=== PATIENT | male | born 1995 | race Caucasian/White ===

== ENCOUNTER 2022-05-14 10:53 | Outpatient (REF) | payer OTHER, SELFPAY ==
[2022-05-14 14:28] LABS: Abs Immature Grans 0.02 10^3/uL (0.0-0.06); Absolute Basophil Count 0.05 10^3/uL (0.0-0.2); Absolute Eosinophil Count 0.09 10^3/uL (0.0-0.7); Absolute Lymphocyte Count 1.24 10^3/uL (1.2-3.4); Absolute Monocyte Count 0.37 10^3/uL (0.1-0.8); Basophils % 0.9; Eosinophils % 1.7; HCT 45.6 % (40.0-50.0); HGB 15.2 g/dL (13.5-17.5); Immature Grans % 0.4; Lymphocytes % 23.5; MCH 30.6 pg (27.0-33.0); MCHC 33.3 % (32.0-36.0); MCV 92 fL (80-95); MPV 11.3 fL (8.0-11.0); Neutrophils % 66.5; Platelet Count 220 10^3/uL (130-400); RBC 4.97 10^6/uL (4.36-5.78); RDW 13.1 % (11.8-14.1); RDW-SD 44.2 fL; WBC 5.27 10^3/uL (4.4-10.8)
[2022-05-14 14:32] LABS: ESR < 1 mm/hr (0-15)
[2022-05-14 14:46] LABS: ALT 17 U/L (16-63); AST 17 U/L (15-37); Albumin 4.6 g/dL (3.4-5.0); Alkaline Phosphatase 81 U/L (46-116); Anion Gap 7.3 mmol/L (3-11); BUN 12 mg/dL (7-18); Bilirubin, Total 0.6 mg/dL (0.2-1.0); CO2 30.7 mmol/L (21.0-32.0); Calcium 9.5 mg/dL (8.5-10.1); Chloride 104 mmol/L (98-107); Estimated GFR 105.79 (mL/min/1.73m2); Glucose 88 mg/dL (74-106); Potassium 4.5 mmol/L (3.5-5.1); Sodium 142 mmol/L (136-145); TSH (W/Ref FT4) 0.54 uIU/mL (0.36-3.74); Total Protein 7.3 g/dL (6.4-8.2)
[2022-05-15 12:26] LABS: IgA 141 mg/dL (85-499); Interpretation (See Note); Tissue Transglutaminase IgA <1.2 U/mL (<4.0)
== END 2022-05-14 10:54 | disposition home or self-care (01) ==
LOC: NCHCN 10:53
PROVIDERS: Visit Provider Family Medicine
DX: K58.2 Mixed irritable bowel syndrome (principal); F41.8 Other specified anxiety disorders
CPT/HCPCS: 80053; 82784; 83516; 85652; 84443; 85025

== ENCOUNTER 2022-05-22 08:57 | Outpatient (REF) | payer OTHER, SELFPAY | END 2022-05-22 08:58 | disposition home or self-care (01) | LOC: NCHCN 08:57 | PROVIDERS: Visit Provider Family Medicine | DX: F41.8 Other specified anxiety disorders (principal); K58.2 Mixed irritable bowel syndrome | CPT/HCPCS: 87329; 83630; 87177 ==

== ENCOUNTER 2024-01-06 14:59 | Outpatient (REF) | payer OTHER, SELFPAY ==
[2024-01-06 14:54] LABS: HCT 46.4 % (40.0-50.0); HGB 15.7 g/dL (13.5-17.5); MCH 30.4 pg (27.0-33.0); MCHC 33.8 % (32.0-36.0); MCV 90 fL (80-95); MPV 11.1 fL (8.0-11.0); Platelet Count 220 10^3/uL (130-400); RBC 5.17 10^6/uL (4.36-5.78); RDW 13.2 % (11.8-14.1); RDW-SD 43.6 fL; WBC 4.99 10^3/uL (4.4-10.8)
--- OUTSIDE RECORDS SUMMARY | 2024-01-06 15:03 | XMS_ITS | Referral Summary ---
Author Organization [facility] Address [address] [place] [address] Care Team Providers Care Outreach Associate Name Role Phone Sunita Cooper MD Primary Care Provider [phone] Allergies No known active allergies Medications No known medications Active Problems No known active problems Social History Tobacco Use Types Packs/Day Years Used Date Smoking Tobacco: Never Smokeless Tobacco: Never Alcohol Use Standard Drinks/Week Comments Yes 0 (1 standard drink = 0.6 oz pur e alcohol) Interpersonal Safety Answer Date Record ed Physically Hurt Never 12/18/2019 Verbally Threaten Not on file 12/18/2019 Sex and Gender Information Value Date Recorded Sex Assigned at Not on file Gender Identity Not on file Sexual Orientation Not on file Last Filed Vital Signs Vital Sign Reading Time Taken Comments Blood Pressure 110/46 07/14/2013 1026 EST Pulse 47 07/14/2013 1026 EST Temperature 37.1 ??C (98.7 ??F) 07/14/2013 1026 EST Respiratory Rate 16 07/14/2013 1026 EST Oxygen Saturation - - Inhaled Oxygen Concentration - - Weight - - Height - - Body Mass Index - - Functional Status Functional Status Response Date of Assess ment Because of a physical, menta l, or emotional condition, does this person have difficulty doing errands alone such as visiting a doctor's office or shopping? No 03/24/2018 Cognitive Status Response Date of Assessm ent Because of a physical, menta l, or emotional condition, does this person have serious difficulty concentrating, remembering, or making decisions? No 03/24/2018 Plan of Treatment Not on file Care Teams Outreach Associate Relationship Specialty Start Date End Date Sunita Cooper MD [address] [place] [address] PCP - General 07/14/13
--- OUTSIDE RECORDS SUMMARY | 2024-01-06 15:03 | XMS_ITS | Clinical Summary ---
Author Organization [facility] Address [address] [place] [address] Care Team Providers Care Payment Rep Name Role Phone Sunita Cooper MD Primary Care Provider [phone] Allergies No known active allergies Medications No known medications Active Problems No known active problems Medical History Medical History Date Comments Chronic low back pain Family History Medical History Relation Comments Psoriasis Father Relation Status Comments Father Alive Mother Alive Social History Tobacco Use Types Packs/Day Years [...] on file Sexual Orientation Not on file Obstetrics History Last Filed Vital Signs Vital Sign Reading Time Taken Comments Blood Pressure 110/46 07/14/2013 1026 EST Pulse 47 07/14/2013 1026 EST Temperature 37.1 ??C (98.7 ??F) 07/14/2013 1026 EST Respiratory Rate 16 07/14/2013 1026 EST Oxygen Saturation - - Inhaled Oxygen Concentration - - Weight - - Height - - Body Mass Index - - Plan of Treatment Health Maintenance Due Date Last Done Comments Hepatitis C Screen 1994 Hepatitis B Vaccine (1 of 3 - 19+ 3-dose series) 12/25 COVID-19 Vaccine ( season) 2023 Care Teams Payment Rep Relationship Specialty Start Date End Date Sunita Cooper MD [address] [place] [address] PCP - General 07/14/13
--- OUTSIDE RECORDS SUMMARY | 2024-01-06 15:03 | XMS_ITS | Encounter Summary ---
Author Organization [facility] Address [address] [place] [address] Care Team Providers Care Bariatric Surgeon Name Role Phone Sunita Cooper MD Primary Care Provider [phone] Reason for Referral * Radiology Services (Routine) - New Request Specialty Diagnoses / Procedures Referred By Sheila wick Referred To Contact Diagnoses Low back pain, unspecified back pain laterality, unspecified chronicity, with sciatica presence unspecified Procedures L SPINE 2-3 VIEWS Dandre Roe PA-C [address] [place] [address] Referral ID Status Reason Start Date Expiration Date V isits Requested Visits Authorized [id number] New Request 03/02/2018 1 1 Encounter Details Date Type Department Care Team (Late st Contact Info) Description 02/26/2018 Orders Only [facility] Spine Program - [address] [address] Dandre Roe PA-C [address] [place] [address] Low back pain, unspecified back pain laterality, unspecified chronicity, with sciatica presence unspecified (Primary Dx) Social History Tobacco Use Types Packs/Day Years Used Date Smoking Tobacco: Never Sex and Gender Information Value Date Recorded Sex Assigned at Not on file Gender Identity Not on file Sexual Orientation Not on file documented as of this encounter Plan of Treatment Not on file documented as of this encounter Procedures Procedure Name Priority Date/Time Associated Diagnosis Comments L SPINE 2-3 VIEWS Routine 03/24/2018 15: 02 EST Low back pain, unspecified back pain laterality, unspecified chronicity, with sciatica presence unspecified documented in this encounter Results * L SPINE 2-3 VIEWS (03/24/2018 15:02 EST) Anatomical Region Laterality Modality Other 03/24/2018 15:0 2 EST 03/25/2018 13:26 EST Narrative 03/25/2018 13:26 EST LUMBAR SPINE, 2 VIEWS HISTORY: Low back pain. Technique PA and lateral lumbar spine radiographs. COMPARISON: None. FINDINGS: The alignment is maintained. The vertebral body heights are normal. Minimal scattered degenerative changes are present. The included extraspinal soft tissues are unremarkable. IMPRESSION: Minimal degenerative changes. No significant malalignment. Procedure Note Mg Carter MD - 03/25/2018 LUMBAR SPINE, 2 VIEWS HISTORY: Low back pain. Technique PA and lateral lumbar spine radiographs. COMPARISON: None. FINDINGS: The alignment is maintained. The vertebral body heights are normal. Minimal scattered degenerative changes are present. The included extraspinal soft tissues are unremarkable. IMPRESSION: Minimal degenerative changes. No significant malalignment. Dandre Roe PA-C [facility] NG ORDERABLES documented in this encounter Visit Diagnoses Diagnosis Low back pain, unspecified back pain laterality, unspecified chronicity, with sciatica presence unspecified- Primary documented in this encounter Care Teams Bariatric Surgeon Relationship Specialty Start Date End Date Sunita Cooper MD [address] [place] [id number] PCP - General 07/14/13 documented as of this encounter
--- OUTSIDE RECORDS SUMMARY | 2024-01-06 15:03 | XMS_ITS | Encounter Summary ---
Author Organization [facility] Address [address] [place] [address] Care Team Providers Care Senior Ui Ux Designer Name Role Phone Sunita Cooper MD Primary Care Provider [phone] Encounter Details Date Type Department Care Team (Late st Contact Info) Description 12/09/2018 Results Only [facility] [phone] Aleshia Feliz, LOSS PREVENTION RESEARCH ENGINEER-C [address] [place] [phone] Social History Tobacco Use Types Packs/Day Years Used Date Smoking Tobacco: Never Smokeless Tobacco: Never Alcohol Use Standard Drinks/Week Comments Yes 0 (1 standard drink = 0.6 oz pur e alcohol) Sex and Gender Information Value Date Recorded Sex Assigned at Not on file Gender Identity Not on file Sexual Orientation Not on file documented as of this encounter Functional Status Functional Status Response Date of [...] concentrating, remembering, or making decisions? No 03/24/2018 documented as of this encounter Plan of Treatment Not on file documented as of this encounter Procedures Procedure Name Priority Date/Time Associated Diagnosis Comments CHLAMYDIA/N. GONORRHOEAE AMPLIFIED RNA, URINE Routine 12/09/2018 12:36 EDT documented in this encounter Results * CHLAMYDIA/N. GONORRHOEAE AMPLIFIED RNA, URINE (12/09/2018 12:36 EDT) Chlamydia Result Negative 12/10/2018 14:14 EDT [facility] GC Result Negative 12/10/2018 14:14 EDT [facility] URINE / Unknown 12/09/2018 1 2:36 EDT 12/09/2018 20:09 EDT Aleshia Feliz LOSS PREVENTION RESEARCH ENGINEER-C MICROBIOLOGY - GENER AL ORDERABLES [facility] [address] [place] [address] documented in this encounter Visit Diagnoses Not on filedocumented in this encounter Care Teams Senior Ui Ux Designer Relationship Specialty Start Date End Date Sunita Cooper MD [address] [place], [place] [phone] PCP - General 07/14/13 documented as of this encounter
--- OUTSIDE RECORDS SUMMARY | 2024-01-06 15:03 | XMS_ITS | Encounter Summary ---
Author Organization [facility] Address [address] [place] [address] Care Team Providers Care Concrete Buster Operator Name Role Phone Sunita Cooper MD Primary Care Provider [phone] Encounter Details Date Type Department Care Team (Late st Contact Info) Description 11/12/2015 Results Only [facility] [phone] Rachana Hamilton MD [address] [place] [phone] Social History Tobacco Use Types Packs/Day Years Used Date Smoking Tobacco: Never Sex and Gender Information Value Date Recorded Sex Assigned at Not on file Gender Identity Not on file Sexual Orientation Not on file documented as of this encounter Plan of Treatment Not on file documented as of this encounter Procedures Procedure Name Priority Date/Time Associated Diagnosis Comments GROUP A STREP CULTURE Routine 11/12/2015 17:07 EDT documented in this encounter Results * PHARYNGITIS CULTURE (11/12/2015 17:07 EDT) Result No group A beta streptococci isolated. Usual jamie-pharyngeal mini. 11/15/2015 8:31 EDT [facility] ENTIRE THROAT / Unknown 11/12/2015 17:07 EDT 11/12/2015 20:07 EDT Rachana Hamilton MD MICROBIOLOGY - GEN ERAL ORDERABLES [facility] [address] [place] [address] documented in this encounter Visit Diagnoses Not on filedocumented in this encounter Care Teams Concrete Buster Operator Relationship Specialty Start Date End Date Sunita Cooper MD [address] [place] [phone] PCP - General 07/14/13 documented as of this encounter
--- OUTSIDE RECORDS SUMMARY | 2024-01-06 15:03 | XMS_ITS | Encounter Summary ---
Author Organization [facility] Address [address] [place] [address] Care Team Providers Care Workers Compensation Claims Adjuster Name Role Phone Sunita Cooper MD Primary Care Provider [phone] Encounter Details Date Type Department Care Team (Latest Contact Info) Description 12/09/2018 17:44 EDT - 12/09/2018 17:45 EDT Hospital Encounter [address] [address] Aleshia Feliz, MEGAN-C [address] [place] [address] Discharge Disposition: Home or Self Care Social History Tobacco Use Types Packs/Day Years [...] No 03/24/2018 documented as of this encounter Discharge Diagnoses Diagnosis R39.89 Other symptoms and signs involving the genitourinary system-R39.89[ICD-10-CM] documented in this encounter Discharge Disposition Disposition Code Departure Means Destination Home or Self Care documented in this encounter Plan of Treatment Not on file documented as of this encounter Visit Diagnoses Not on filedocumented in this encounter Care Teams Workers Compensation Claims Adjuster Relationship Specialty Start Date End Date Sunita Cooper MD [address] [place] [address] PCP - General 07/14/13 documented as of this encounter
--- OUTSIDE RECORDS SUMMARY | 2024-01-06 15:03 | XMS_ITS | Encounter Summary ---
Author Organization [facility] Address [address] [place] [address] Care Team Providers Care Crossbow Maker Name Role Phone Unavailable Primary Care Provider Unavailabl e Encounter Details Date Type Department Care Team (Late st Contact Info) Description 03/30/2003 Results Only [facility] - [facility] [address] [place] [address] Kayy Sanchez MD [address] [place] [address], [facility] [address] [place] [address] Social History Tobacco Use Types Packs/Day Years Used Date Smoking Tobacco: Never Assessed Sex and Gender Information Value Date Recorded Sex Assigned at Not on file Gender Identity Not on file Sexual Orientation Not on file documented as of this encounter Plan of Treatment Not on file documented as of this encounter Procedures Procedure Name Priority Date/Time Associated Diagnosis Comments GROUP A STREP CULTURE Routine 03/30/2003 14:00 EST documented in this encounter Results * PHARYNGITIS CULTURE (03/30/2003 14:00 EST) Specimen Description Throat [facility] Result NO GROUP A BETA STREPTOCOCCI ISOLATED [facility] Report Status Final [id number] [facility] 03/30/2003 14:0 0 EST 03/30/2003 18:11 EST Kayy Sanchez MD MICROBIOLOGY - GENERAL ORDERABLES [facility] [address] [place] [address] documented in this encounter Visit Diagnoses Not on filedocumented in this encounter
--- OUTSIDE RECORDS SUMMARY | 2024-01-06 15:03 | XMS_ITS | Encounter Summary ---
Author Organization [facility] Address [address] [place] [address] Care Team Providers Care Advanced Manager Name Role Phone Sunita Cooper MD Primary Care Provider [phone] Reason for Visit * Reason Comments Rash Encounter Details Date Type Department Care Team (Latest Contact Info) Description 07/14/2013 9:57 EST - 07/14/2013 13:44 EST Hospital Encounter [facility] - [address] [id number] Felipe Orantes MD [address] [place] [address] Unknown, Provider, Rash (Primary Dx) Discharge Disposition: Home or Self Care Social History Tobacco Use Types Packs/Day Years Used Date Smoking Tobacco: Never Sex and Gender Information Value Date Recorded Sex Assigned at Not on file Gender Identity Not on file Sexual Orientation Not on file documented as of this encounter Last Filed Vital Signs Vital Sign Reading Time Taken Comments Blood Pressure 110/46 07/14/2013 1026 EST Pulse 47 07/14/2013 1026 EST Temperature 37.1 ??C (98.7 ??F) 07/14/2013 1026 EST Respiratory Rate 16 07/14/2013 1026 EST Oxygen Saturation - - Inhaled Oxygen Concentration - - Weight - - Height - - Body Mass Index - - documented in this encounter Discharge Diagnoses Diagnosis 782.1 NONSPECIF SKIN ERUPT NEC[ICD-9-CM] documented in this encounter Discharge Instructions * Discharge Instructions* Felipe Orantes MD - 07/14/2013 12:02 EST You may try clotrimazole 1% cream on the area per the package instructions. It is available [id number]. You should follow up with a provider if you find your symptoms do not improve. Otherwise follow up acutely if you have worsening or new symptoms. * Attachments The following attachments cannot be sent through Care Everywhere. * RASH: AFTER YOUR CHILD'S VISIT (NAMIBIAN) documented in this encounter Discharge Disposition Disposition Code Departure Means Destination Home or Self Care documented in this encounter ED Notes * Felipe Orantes MD - 07/14/2013 1108 EST Images from the original note were not included. DOS: 07/14/2013 Chief Complaint Patient presents with ??? Rash The patient is a 17 y.o. male who presents today with Rash HPI Comments: Patient presents today with his father for concern of a small rash on his lower back.There are several small red spots on his lower back. The areas are not itchy or painful. He cannot recall any specific exposure. They have not tried any treatments. The rash is not that bothersome, but as the patient is a highly ranked wrestler, who has a match tomorrow, they want to have paperworkcompleted to state that this is not a contagious rash. They bring specific paperwork sanctioned by the school and [employer]. He feels well The history is provided by the patient and a parent. Rash Location: lower back. Quality comment: Small red spots Severity: Mild Onset quality: Sudden Duration: 3 days. Timing: Constant Progression: Improving (Maybe slightly better) Chronicity: New Context: not animal contact, not chemical exposure, not exposure to similar rash, not food, not insect bite/sting, not medications, not plant contact and not sick contacts Relieved by: None tried Worsened by: Nothing tried Ineffective treatments: None tried Associated symptoms: no fatigue, no fever and no URI Review of Systems Constitutional: Negative for fever, chills, diaphoresis, activity change and fatigue. Skin: Positive for color change and rash. Negative for pallor and wound. No current facility-administered medications for this encounter. No current outpatient prescriptions on file. No Known Allergies There are no active problems to display for this patient. History reviewed. No pertinent past medical history. History Substance Use Topics ??? Smoking status: Never Smoker ??? Smokeless tobacco: Not on file ??? Alcohol Use: Not on file History reviewed. No pertinent family history. BP 110/46 Pulse 47 Temp(Src) 98.7 ??F (37.1 ??C) Resp 16 Physical Exam Nursing note and vitals reviewed. Constitutional: He appears well-developed and well-nourished. No distress. Here with father. No distress. HENT: Head: Normocephalic. Mouth/Throat: No oropharyngeal exudate. Patient has characteristic cauliflower ear formation on both upper ear helices. Eyes: Conjunctivae are normal. Right eye exhibits no discharge. Left eye exhibits no discharge. Pulmonary/Chest: Effort normal. No respiratory distress. Skin: Skin is warm, dry and intact. Rash noted. No bruising and no ecchymosis noted. Rash is maculopapular. Rash is not pustular and not vesicular. He is not diaphoretic. There is erythema. No cyanosis. No pallor. Psychiatric: He has a normal mood and affect. His behavior is normal. Judgment and thought content normal. Rash, low back PCP: Sunita Cooper MD No results found for this visit on 07/14/13. Radiology orders: None Procedures Assessment & Plan, Course: A medical screening exam was performed. Patient is an otherwise healthy 17-year-old male here with his father for concern of several small spots of rash of low back, concerning for very early tinea. Patient actually has a wrestling tournament tomorrow. They have paperwork to be completed. Unfortunately, cannot rule out tinea definitively and cannot fill out form that would definitively state that patient does not have a non-contagious etiology to his rash. Per the form (which has specifics about diagnoses and presumed aim to reduce spreading of contagious skin diseases among participants) , recommendation would be that patient sit out of wrestling until after 72 hours of treatment. Rash is not consistent with more complicated or serious etiology such as the chest the or bacterialcause. Did offer lab testing of skin scraping- which is declined today Paperwork not completed. He may trial clotrimazole for the rash. Follow up if failing. Questions and concerns were answered. Patient and father expressed understanding of plan. Disposition: Discharged The patient's pain was managed to an adequate level weighing risk vs. benefit of further medications. Upon departure from the [facility], the patient's pain was 0 on a zero to ten scale. Condition at departure from the [facility]: Stable Final diagnoses: Rash No supervision required. MDM Signed: Felipe Orantes MD 07/15/2013 11:51 * Gwen Zhong RN - 07/14/2013 1027 EST The rash started about 3 days ago on his back. He needs a note to compete in wrestling for [employer]. It is not itchy and there is no drainage. documented in this encounter Plan of Treatment Not on file documented as of this encounter Visit Diagnoses Diagnosis Rash- Primary Rash and other nonspecific skin eruption documented in this encounter Care Teams Advanced Manager Relationship Specialty Start Date End Date Sunita Cooper MD [address] [place] [address] PCP - General 07/14/13 documented as of this encounter
--- OUTSIDE RECORDS SUMMARY | 2024-01-06 15:03 | XMS_ITS | Encounter Summary ---
Author Organization [facility] Address [address] [place] [address] Care Team Providers Care Bottoming Machine Operator Name Role Phone Unknown, Provider Primary Care Provider [phone] Encounter Details Date Type Department Care Team (Late st Contact Info) Description 10/21/2012 Results Only [facility] Laboratory Services - [facility] ([facility] [address] [place] [address] Sunita Cooper MD [address] [place], [place] [phone] Social History Tobacco Use Types Packs/Day Years [...] Comments CHLAMYDIA/N. GONORRHOEAE AMPLIFIED RNA, URINE Routine 10/21/2012 13:48 EDT documented in this encounter Results * CHLAMYDIA/GC AMPLIFIED, URINE (10/21/2012 13:48 EDT) Specimen Description Urine [facility] Chlamydia Result No Chlamydia trachomatis DNA detected by boat crew deck hand mediated amplification. [facility] GC Result No Neisseria gonorrhoeae DNA detected by boat crew deck hand mediated amplification. [facility] 10/21/2012 13:4 8 EDT 10/21/2012 19:37 EDT Sunita Cooper MD MICROBIOLOGY - GENER AL ORDERABLES Performing Organization Address City/State/[facility] Co de Phone Number [address] [address] documented in this encounter Visit Diagnoses Not on filedocumented in this encounter Care Teams Bottoming Machine Operator Relationship Specialty Start Date End Date Unknown, Provider, PCP - General 10/10/11 07/13/13 documented as of this encounter
--- OUTSIDE RECORDS SUMMARY | 2024-01-06 15:03 | XMS_ITS | Encounter Summary ---
Author Organization [facility] Address [address] [place] [address] Care Team Providers Care Assistant Professor Of Religion Name Role Phone Sunita Cooper MD Primary Care Provider [phone] Reason for Referral * Radiology Services (Routine) - Closed Specialty Diagnoses / Procedures Referred By Sheila wick Referred To Contact Diagnoses Neck pain Procedures CERVICAL SPINE 2-3 VIEWS Dandre Roe PA-C [address] [place], [place] [address] [place] [address] Referral ID Status Reason Start Date Expiration Date Visits Re quested Visits Authorized [id number] Closed 04/06/2018 1 1 Encounter Details Date Type Department Care Team (Late st Contact Info) Description 04/06/2018 Orders Only [facility] Spine Program [place] [address] [place] [address] Dandre Roe PA-C [address] [place] [phone] Neck pain (Primary Dx) Social History Tobacco Use Types [...] Procedure Name Priority Date/Time Associated Diagnosis Comments CERVICAL SPINE 2-3 VIEWS Routine 04/06/2018 14:58 EST Neck pain documented in this encounter Results * CERVICAL SPINE 2-3 VIEWS (04/06/2018 14:58 EST) Anatomical Region Laterality Modality Other 04/06/2018 14:5 8 EST 04/07/2018 7:57 EST Narrative 04/07/2018 7:57 EST CERVICAL SPINE 2-3 VIEWS ??04/06/2018 2:58 PM Clinical History/Comments: M54.9-Wmfliqlevdg-ZWH-10; neck pain. Technique: 2 views of the cervical spine Comparison: None. Findings: Slight reversal of the normal cervical curvature. No significant spondylolisthesis. Vertebral body heights are normal. Disc heights are normal. No significant facet arthropathy identified. Prevertebral soft tissues are unremarkable. Procedure Note Alejandro Leo MD - 04/07/2018 CERVICAL SPINE 2-3 VIEWS 04/06/2018 2:58 PM Clinical History/Comments: M54.7-Mtepjkooiea-WFF-10; neck pain. Technique: 2 views of the cervical spine Comparison: None. Findings: Slight reversal of the normal cervical curvature. No significant spondylolisthesis. Vertebral body heights are normal. Disc heights are normal. No significant facet arthropathy identified. Prevertebral soft tissues are unremarkable. Dandre Roe PA-C [facility] NG ORDERABLES documented in this encounter Visit Diagnoses Diagnosis Neck pain- Primary Cervicalgia documented in this encounter Care Teams Assistant Professor Of Religion Relationship Specialty Start Date End Date Sunita Cooper MD [address] [place] [address] PCP - General 07/14/13 documented as of this encounter
--- OUTSIDE RECORDS SUMMARY | 2024-01-06 15:03 | XMS_ITS | Encounter Summary ---
Author Organization [facility] Address [address] [place] [address] Care Team Providers Care Varnish Inspector Name Role Phone Sunita Cooper MD Primary Care Provider [phone] Encounter Details Date Type Department Care Team (Late st Contact Info) Description 05/14/[address] [facility] Pathology & Laboratory Medicine - [facility] [address] [place] [address] Outr Resulting Lab, Provider Social History Tobacco Use Types Packs/Day Years [...] Procedure Name Priority Date/Time Associated Diagnosis Comments CELIAC DISEASE PANEL Routine 05/14/2022 10:33 EST documented in this encounter Results * CELIAC DISEASE PANEL (05/14/2022 10:33 EST) Tissue Transglutaminase Antibody IGA <1.2 <4.0 U/mL 05/15/2022 12:21 EST [facility] Comment: A negative result may be due to IgA deficiency and does not rule out celiac disease. ? Negative: ??<4.0 U/mL ? Weak Positive: ??4.0 - 10.0 U/mL ? Positive: ??>10.0 U/mL Results were obtained with the [employer] Expert[employer] Lite R h-tTG IgA ROB assay on the [employer] DSX. IgA 141 85 - 499 mg/dL 05/15/2022 12:21 EST [facility] Celiac Disease Interpretation Negative Serology. Celiac disease unlikely. Approximately 10% of patients with celiac disease are seronegative. Patients who are already adhering to a gluten-free diet may also be seronegative. If celiac disease is highly clinically suspected, referral to gastroenterology for additional evaluation is recommended. 05/15/2022 12:21 EST [facility] Blood VENOUS BLOOD / Unknown 05/14/2022 10:33 EST 05/14/2022 21:40 EST Provider Outr Resulting Lab IMMUNOLOGY A ND SEROLOGY ORDERABLES Performing Organization Address City/State/[facility] Co de Phone Number [facility] [address] [place] [address] documented in this encounter Visit Diagnoses Not on filedocumented in this encounter Care Teams Varnish Inspector Relationship Specialty Start Date End Date Sunita Cooper MD [address] [place] [address] PCP - General 07/14/13 documented as of this encounter
--- OUTSIDE RECORDS SUMMARY | 2024-01-06 15:03 | XMS_ITS | Encounter Summary ---
Author Organization [facility] Address [address] [place] [address] Care Team Providers Care Moss Picker Name Role Phone Unavailable Primary Care Provider Unavailabl e Encounter Details Date Type Department Care Team (Late st Contact Info) Description 09/04/2003 14:25 EDT Hospital Encounter [facility] - Other [address] [place] [address] Adryan Dodson MD Social History Tobacco Use Types Packs/Day Years [...]
--- OUTSIDE RECORDS SUMMARY | 2024-01-06 15:03 | XMS_ITS | Encounter Summary ---
Author Organization [facility] Address [address] [place] [address] Care Team Providers Care Residence Life Coordinator Name Role Phone Unknown, Provider Primary Care Provider Encounter Details Date Type Department Care Team (Latest Contact Info) Description 10/21/2012 13:08 EDT - 10/21/2012 13:09 EDT Hospital Encounter [address] [address] Sunita Cooper MD [address] [place] [address] Discharge Disposition: Home or Self Care Social History Tobacco Use Types Packs/Day Years Used Date Smoking Tobacco: Never Assessed Sex and Gender Information Value Date Recorded Sex Assigned at Not on file Gender Identity Not on file Sexual Orientation Not on file documented as of this encounter Discharge Disposition Disposition Code Departure Means Destination Home or Self Care documented in this encounter Plan of Treatment Not on file documented as of this encounter Visit Diagnoses Not on filedocumented in this encounter Care Teams Residence Life Coordinator Relationship Specialty Start Date End Date Unknown, Provider, PCP - General 10/10/11 07/13/13 documented as of this encounter
--- OUTSIDE RECORDS SUMMARY | 2024-01-06 15:03 | XMS_ITS | Encounter Summary ---
Author Organization [facility] Address [address] [place] [address] Care Team Providers Care Automotive Machinist Apprentice Name Role Phone Sunita Cooper MD Primary Care Provider [phone] Encounter Details Date Type Department Care Team (Late st Contact Info) Description 11/12/2015 11:36 EDT - 11/12/2015 11:[address] [facility] - [address] [address] Rachana Hamilton MD [address] [place] [address] Discharge Disposition: Home or Self Care Social History Tobacco Use Types Packs/Day Years Used Date Smoking Tobacco: Never Sex and Gender Information Value Date Recorded Sex Assigned at Not on file Gender Identity Not on file Sexual Orientation Not on file documented as of this encounter Discharge Diagnoses Diagnosis J02.9 Acute pharyngitis, unspecified-J02.9[ICD-10-CM] documented in this encounter Discharge Disposition Disposition Code Departure Means Destination Home or Self Care documented in this encounter Plan of Treatment Not on file documented as of this encounter Visit Diagnoses Not on filedocumented in this encounter Care Teams Automotive Machinist Apprentice Relationship Specialty Start Date End Date Sunita Cooper MD [address] [place], [place] [id number] PCP - General 07/14/13 documented as of this encounter
--- OUTSIDE RECORDS SUMMARY | 2024-01-06 15:03 | XMS_ITS | Encounter Summary ---
Author Organization [facility] Address [address] [place] [address] Care Team Providers Care Progressive Care Unit Registered Nurse Name Role Phone Unknown, Provider Primary Care Provider [phone] Encounter Details Date Type Department Care Team (Late st Contact Info) Description 10/10/2011 Results Only [facility] - [facility] [address] [place] [address] Madonna Salmon MD [address] [place] [phone] Social History Tobacco Use Types Packs/Day Years Used Date Smoking Tobacco: Never Assessed Sex and Gender Information Value Date Recorded Sex Assigned at Not on file Gender Identity Not on file Sexual Orientation Not on file documented as of this encounter Plan of Treatment Not on file documented as of this encounter Procedures Procedure Name Priority Date/Time Associated Diagnosis Comments BACTERIAL CULTURE/SMEAR Routine 10/10/2011 17:30 EDT documented in this encounter Results * BACTERIAL CULTURE/SMEAR, OTHER (10/10/2011 17:30 EDT) Specimen Description Arm [facility] Gram Smear Result No polys seen [facility] Gram Smear Result No bacteria seen [facility] Gram Smear Result Results reviewed by supervisory staff [facility] Result Mod STAPHYLOCOCCUS COAGULASE POSITIVE (STAPHYLOCOCCUS AUREUS) [facility] Report Status 10/13/2011 Final [facility] ORGANISM STAPHYLOCOCCUS COAGULASE POSITIVE (STAPHYLOCOCCUS AUREUS) [facility] Arm 10/10/2011 17:3 0 EDT 10/11/2011 14:13 EDT Narrative Organism Antibiotic Method Susceptibility Staphylococcus coagulase positive (staphylococcus aureus) Susceptibility comment SUSCEPTIBILITY (LARISA) SEE NOTES Comment: Susceptible to nafcillin, cephalosporins and other beta lactam antibiotics (mecA gene product absent). Staphylococcus coagulase positive (staphylococcus aureus) Oxacillin SUSCEPTIBILITY (LARISA) 0.5: Susceptible Staphylococcus coagulase positive (staphylococcus aureus) Cefazolin SUSCEPTIBILITY (LARISA) Susceptible Staphylococcus coagulase positive (staphylococcus aureus) Vancomycin SUSCEPTIBILITY (LARISA) 1: Susceptible Staphylococcus coagulase positive (staphylococcus aureus) Erythromycin SUSCEPTIBILITY (LARISA) >=8: Resistant Staphylococcus coagulase positive (staphylococcus aureus) Clindamycin SUSCEPTIBILITY (LARISA) 1024: Resistant Staphylococcus coagulase positive (staphylococcus aureus) Ciprofloxacin SUSCEPTIBILITY (LARISA) <=0.5: Susceptible Staphylococcus coagulase positive (staphylococcus aureus) Trimethoprim-Sulfamet hoxazole SUSCEPTIBILITY (LARISA) <=10: Susceptible Comment:Mod STAPHYLOCOCCUS C OAGULASE POSITIVE (STAPHYLOCOCCUS AUREUS) Madonna Salmon MD MICROBIOLOGY - GENERAL ORDERABLES [facility] [address] [place] [address] documented in this encounter Visit Diagnoses Not on filedocumented in this encounter Care Teams Progressive Care Unit Registered Nurse Relationship Specialty Start Date End Date Unknown, Provider, PCP - General 10/10/11 07/13/13 documented as of this encounter
--- OUTSIDE RECORDS SUMMARY | 2024-01-06 15:03 | XMS_ITS | Encounter Summary ---
Author Organization [facility] Address [address] [place] [address] Care Team Providers Care Tumbler Dyeing Machine Operator Name Role Phone Unavailable Primary Care Provider Unavailabl e Encounter Details Date Type Department Care Team (Late st Contact Info) Description 09/04/2003 Results Only [facility] - [facility] [address] [place] [address] Adryan Dodson MD Social History Tobacco Use [...] Diagnosis Comments GROUP A STREP CULTURE Routine 09/04/2003 18:40 EDT documented in this encounter Results * PHARYNGITIS CULTURE (09/04/2003 18:40 EDT) Specimen Description Throat [facility] Result NO GROUP A BETA STREPTOCOCCI ISOLATED [facility] Report Status Final [id number] [facility] 09/04/2003 18:4 0 EDT 09/04/2003 18:40 EDT Adryan Dodson MD MICROBIOLOGY - GENER AL ORDERABLES [facility] [address] [place] [address] documented in this encounter Visit Diagnoses Not on filedocumented in this encounter
--- OUTSIDE RECORDS SUMMARY | 2024-01-06 15:03 | XMS_ITS | Encounter Summary ---
Author Organization [facility] Address [address] [place] [address] Care Team Providers Care Pondman Name Role Phone Unavailable Primary Care Provider Unavailabl e Encounter Details Date Type Department Care Team (Latest Contact Info) Description 11/25/2005 16:06 EDT Hospital Encounter [facility] [address] [place] [address] Adryan Dodson MD Discharge Disposition: Auto Discharge Social History Tobacco Use Types Packs/Day Years Used Date Smoking Tobacco: Never Assessed Sex and Gender Information Value Date Recorded Sex Assigned at Not on file Gender Identity Not on file Sexual Orientation Not on file documented as of this encounter Discharge Disposition Disposition Code Departure Means Destination Auto Discharge documented in this encounter Plan of Treatment Not on file documented as of this encounter Procedures Procedure Name Priority Date/Time Associated Diagnosis Comments CHEST PA AND LATERAL 11/25/2005 16:20 EDT documented in this encounter Results * CHEST PA AND LATERAL (11/25/2005 16:20 EDT) Anatomical Region Laterality Modality Other 11/25/2005 16:2 0 EDT Narrative 12/02/2008 14:02 EDT swallowed quarter,chest pain anterior r/o foreigh body entrap wet rd [phone] CHEST PA AND LATERAL CLINICAL HISTORY: Swallowed a quarter, now pain in the anterior chest. Rule out foreign body entrapment. COMPARISON: No comparisons. FINDINGS: PA and lateral views of the chest show a quarter within the abdomen. Cardiomediastinal silhouette and pulmonary markings are unremarkable. Bones and soft tissues normal for age. Findings were called to the pediatric clinic. D: ??11/25/05 T: ??11/29/05 silvino I have personally reviewed the images and the above interpretation and agree with the findings. Procedure Note Mal Butler DDS / Adryan Vicente MD - 12/02/2008 swallowed quarter,chest pain anterior r/o foreigh body entrap wet rd [phone] CHEST PA AND LATERAL CLINICAL HISTORY: Swallowed a quarter, now pain in the anterior chest. Rule out foreign body entrapment. COMPARISON: No comparisons. FINDINGS: PA and lateral views of the chest show a quarter within the abdomen. Cardiomediastinal silhouette and pulmonary markings are unremarkable. Bones and soft tissues normal for age. Findings were called to the pediatric clinic. silvino I have personally reviewed the images and the above interpretation and agree with the findings. Adryan Dodson MD IMG DIAGNOSTIC IMAGI NG ORDERABLES documented in this encounter Visit Diagnoses Not on filedocumented in this encounter
--- OUTSIDE RECORDS SUMMARY | 2024-01-06 15:03 | XMS_ITS | Encounter Summary ---
Author Organization [facility] Address [address] [place] [address] Care Team Providers Care Welfare Service Aide Name Role Phone Unknown, Provider Primary Care Provider [phone] Encounter Details Date Type Department Care Team (Latest Contact Info) Description 10/10/2011 15:03 EDT - 10/10/2011 15:04 EDT Hospital Encounter [address] [address] Madonna Salmon MD [address] [place] [phone] Discharge Disposition: Home or Self Care [...] on filedocumented in this encounter Care Teams Welfare Service Aide Relationship Specialty Start Date End Date Unknown, Provider, PCP - General 10/10/11 07/13/13 documented as of this encounter
--- OUTSIDE RECORDS SUMMARY | 2024-01-06 15:03 | XMS_ITS | Encounter Summary ---
Author Organization [facility] Address [address] [place] [address] Care Team Providers Care Professor Of Poultry Science Name Role Phone Sunita Cooper MD Primary Care Provider [phone] Reason for Visit * Reason Comments Back Pain lbp Encounter Details Date Type Department Care Team (Late st Contact Info) Description 03/24/2018 14:45 EST Office Visit [facility] Spine Program - [address] [place] [address] Dandre Roe PA-C [address] [place] [address] [place] [address] Chronic bilateral low back pain without sciatica (Primary Dx) Discharge Disposition: Auto Discharge Social History Tobacco [...] as of this encounter Discharge Diagnoses Diagnosis M54.5 Low back pain-M54.5[ICD-10-CM] documented in this encounter Discharge Disposition Disposition Code Departure Means Destination Auto Discharge documented in this encounter Progress Notes * Dandre Roe PA - 03/24/2018 1445 EST Юлия Brown is being seen as a consultation from Dr. Pittman. Chief Complaint Patient presents with ??? Back Pain lbp There were no encounter diagnoses. HPI The patient presents with years of low back pain dating back to his high school years. Symptomshave been constant to some degree. Gradually increasing without radiation. Symptoms described as achiness and stiffness, it can be exacerbated by exercise before and after, as well as driving, lifting, sitting and transitioning while he finds some relief with heat and wearing a brace. He denies lower extremity symptoms and would like to discuss options in treatment of his discomfort. He has not seen a physical therapist, received long term care pharmacist or injection therapy. HPI There is no problem list on file for this patient. Past Medical History: Diagnosis Date ??? Chronic low back pain History reviewed. No pertinent surgical history. Social History Substance Use Topics ??? Smoking status: Never Smoker ??? Smokeless tobacco: Never Used ??? Alcohol use Yes Family History Problem Relation Age of Onset ??? Psoriasis Father No current outpatient prescriptions on file. No current facility-administered medications for this visit. No Known Allergies Review of Systems Constitutional: Positive for activity change. Eyes: Negative for visual disturbance. Respiratory: Negative for wheezing. Cardiovascular: Negative for palpitations. Gastrointestinal: Negative for constipation. Genitourinary: Negative for difficulty urinating. Musculoskeletal: Positive for back pain and neck pain. Skin: Negative for rash. Neurological: Negative for weakness and numbness. Psychiatric/Behavioral: The patient is not nervous/anxious. Physical Exam Constitutional: He is oriented to person, place, and time. He appears well- developed and well-nourished. No distress. Eyes: EOM are normal. Cardiovascular: Normal rate. Pulmonary/Chest: Effort normal. Neurological: He is alert and oriented to person, place, and time. Skin: Skin is warm and dry. Psychiatric: He has a normal mood and affect. Back Exam Comments: Gait is normal heel toe walking is normal No lesions rashes or hair akshat mild right paraspinal palp tenderness FROM Strength 5/5 soft touch diminished medial lateral left thigh Reflexes 1 DP2 babinski is down there is no clonus SLR right: neg Left: neg Hips have FROM FABERS neg Neurologic Exam Mental Status Oriented to person, place, and time. Cranial Nerves CN III, IV, Extraocular motions are normal. The prior workup of the patient includes: All films are normal. Assessment Musculoskeletal discogenic back pain, no signs of radiculopathy. PLAN: 1. Activity as tolerated. 2. Ibuprofen p.r.n. 3. Pain management per primary doctor. Dr Locke was available for consultation, but was not consulted. No orders of the defined types were placed in this encounter. Plan: documented in this encounter Plan of Treatment Not on file documented as of this encounter Visit Diagnoses Diagnosis Chronic bilateral low back pain without sciatica- Primary documented in this encounter Care Teams Professor Of Poultry Science Relationship Specialty Start Date End Date Sunita Cooper MD [address] [place] [address] PCP - General 07/14/13 documented as of this encounter
--- OUTSIDE RECORDS SUMMARY | 2024-01-06 15:03 | XMS_ITS | Encounter Summary ---
Author Organization [facility] Address [address] [place] [address] Care Team Providers Care Chemistry Quality Control Analyst Name Role Phone Sunita Cooper MD Primary Care Provider [phone] Encounter Details Date Type Department Care Team (Late st Contact Info) Description 12/15/2016 19:36 EDT - 12/15/2016 23:59 EDT Hospital Encounter [address] [address] Rachana Hamilton MD [address] [place] [address] Discharge Disposition: Auto Discharge Social History Tobacco Use Types Packs/Day Years Used Date Smoking Tobacco: Never Sex and Gender Information Value Date Recorded Sex Assigned at Not on file Gender Identity Not on file Sexual Orientation Not on file documented as of this encounter Discharge Diagnoses Diagnosis Z11.8 Encounter for screening for other infectious and parasitic diseases-Z11.8[ICD-10-CM] documented in this encounter Discharge Disposition Disposition Code Departure Means Destination Auto Discharge Home documented in this encounter Plan of Treatment Not on file documented as of this encounter Visit Diagnoses Not on filedocumented in this encounter Care Teams Chemistry Quality Control Analyst Relationship Specialty Start Date End Date Sunita Cooper MD [address] [place], [place] [id number] PCP - General 07/14/13 documented as of this encounter
--- OUTSIDE RECORDS SUMMARY | 2024-01-06 15:03 | XMS_ITS | Encounter Summary ---
Author Organization [facility] Address [address] [place] [address] Care Team Providers Care Cut Off Saw Grader Name Role Phone Unavailable Primary Care Provider Unavailabl e Encounter Details Date Type Department Care Team (Latest Contact Info) Description 03/30/2003 21:58 EST Hospital Encounter [facility] - Other [address] [place] [address] Kayy Sanchez MD [address] [place] [address] [address] [place] [address] Discharge Disposition: Auto Discharge Social History Tobacco [...]
--- OUTSIDE RECORDS SUMMARY | 2024-01-06 15:03 | XMS_ITS | Encounter Summary ---
Author Organization [facility] Address [address] [place] [address] Care Team Providers Care Resident Care Supervisor Name Role Phone Sunita Cooper MD Primary Care Provider [phone] Reason for Visit * Reason Onset Date Comments Medications Refill 08/09/2013 Encounter Details Date Type Department Care Team (Late st Contact Info) Description 08/09/2013 Telephone [facility] - [address] [address] Md Americo Provider, AIR CONTROL ELECTRONICS OPERATOR Medications Refill Social History Tobacco Use Types Packs/Day Years Used Date Smoking Tobacco: Never Sex and Gender Information Value Date Recorded Sex Assigned at Not on file Gender Identity Not on file Sexual Orientation Not on file documented as of this encounter Miscellaneous Notes * Telephone Encounter - Joan Martin RN - 08/09/2013 1314 EDT Patient made aware medication is otc, will go draft roller picker and use 2 times/day for 2 weeks. * Telephone Encounter - Destini Friedman RN - 08/09/2013 1218 EDT Call returned to father (Kwame). Voice mail identifies parent by name. Message left for Юлия to call us back for further questions as patient is 17 years old. Case discussed with Dr. Reyna. Pt didnot have a prescription but can purchase the Clotrimazole 1% OTC. Should be encouraged to use the cream twice a day for 14 days and recheck PRN. * Telephone Encounter - Daija Thakur - 08/09/2013 1200 EDT Misplaced meds, out of town, looking to see possibility of it being prescribed. Pt is currently outof state. documented in this encounter Plan of Treatment Not on file documented as of this encounter Visit Diagnoses Not on filedocumented in this encounter Care Teams Resident Care Supervisor Relationship Specialty Start Date End Date Sunita Cooper MD [address] [place] [address] PCP - General 07/14/13 documented as of this encounter
--- OUTSIDE RECORDS SUMMARY | 2024-01-06 15:03 | XMS_ITS | Encounter Summary ---
Author Organization [facility] Address [address] [place] [address] Care Team Providers Care Lace Inspector Name Role Phone Sunita Cooper MD Primary Care Provider [phone] Encounter Details Date Type Department Care Team (Late st Contact Info) Description 03/09/2018 Historical Results Only [facility] - [address] [address] [place] [address] [place] [address] Social History Tobacco Use Types Packs/Day Years Used Date Smoking Tobacco: Never Sex and Gender Information Value Date Recorded Sex Assigned at Not on file Gender Identity Not on file Sexual Orientation Not on file documented as of this encounter Plan of Treatment Not on file documented as of this encounter Procedures Procedure Name Priority Date/Time Associated Diagnosis Comments PHARYNGITIS SCREEN - [facility] Routine 03/09/2018 17:07 EDT documented in this encounter Results * PHARYNGITIS SCREEN - [facility] (03/09/2018 17:07 EDT) BETA HEMOLYTIC STREP NOT GRP A - CV ASSOCIATE MEDIA PLANNER 03/12/2018 12:35 EDT [facility] - [facility] FEW 03/12/2018 12:35 EDT [facility] USUAL ORAL/PHARYNGEA L MAKEDA - CV UTF 03/12/2018 12:35 EDT [facility] - [facility] PRESENT 03/12/2018 12:35 EDT [facility] 03/09/2018 17:0 7 EDT 03/10/2018 14:30 EDT Cachorro Yuan MD CHEMISTRY & BLOOD GAS ORDERABLES [facility] documented in this encounter Visit Diagnoses Not on filedocumented in this encounter Care Teams Lace Inspector Relationship Specialty Start Date End Date Sunita Cooper MD [address] [place] [address] PCP - General 07/14/13 documented as of this encounter
--- OUTSIDE RECORDS SUMMARY | 2024-01-06 15:03 | XMS_ITS | Encounter Summary ---
Author Organization [facility] Address [address] [place] [address] Care Team Providers Care Cement Contractor Name Role Phone Sunita Cooper MD Primary Care Provider [phone] Reason for Visit * Reason Comments Neck Pain * Consult, Test and Treat (Routine) - Closed Specialty Diagnoses / Procedures Referred By Sheila wick Referred To Contact Orthopedic Surgery Diagnoses Neck pain Debby Guadarrama MD [address] [place] [phone] [facility] [address] [place] [address] Referral ID Status Reason Start Date Expiration Date Visits Re quested Visits Authorized [id number] Closed 1 1 Encounter Details Date Type Department Care Team (Late st Contact Info) Description 04/06/2018 14:45 EST Office Visit [facility] - [place] [address] Dandre Roe PA-C [address] [facility] [place] [address] Neck pain (Primary Dx); Bilateral carpal tunnel syndrome Discharge Disposition: Auto Discharge Social History Tobacco [...] as of this encounter Discharge Diagnoses Diagnosis M54.2 Cervicalgia-M54.2[ICD-10-CM] documented in this encounter Discharge Disposition Disposition Code Departure Means Destination Auto Discharge documented in this encounter Progress Notes * Dandre Roe PA - 04/06/2018 1445 EST Юлия Kevin is being seen as a consultation from Dr. Guadarrama. Chief Complaint Patient presents with ??? Neck Pain There were no encounter diagnoses. HPI The patient presents with years of neck pain he attributes to wrestling most of his life. He notes that in 2013 and 2014, he had an episode of cervical spasm/torticollis and since that time his pain has been worse. He notes he also has associated upper extremity dysesthesias in the forearms in his hands including all fingers in particular his middle finger bilaterally, left slightly greater than right. He will also have occasional right shoulder pain. He has not seen a physical therapist, received palliative care coordinator or injection therapy. His symptoms can be exacerbated by tilting his head forward or back lifting, while he finds sitting in a neutral position somewhat helpful. HPI There is no problem list on file for this patient. Past Medical History: Diagnosis Date ??? Chronic low back pain No past surgical history on file. Social History Tobacco Use ??? Smoking status: Never Smoker ??? Smokeless tobacco: Never Used Substance Use Topics ??? Alcohol use: Yes Family History Problem Relation Age of Onset ??? Psoriasis Father No current outpatient medications on file. No current facility-administered medications for this visit. No Known Allergies Review of Systems Constitutional: Positive for activity change. Eyes: Negative for visual disturbance. Respiratory: Negative for wheezing. Cardiovascular: Negative for palpitations. Gastrointestinal: Negative for constipation. Genitourinary: Negative for difficulty urinating. Musculoskeletal: Positive for back pain, neck pain and neck stiffness. Skin: Negative for rash. Neurological: Positive for numbness. Negative for weakness. Psychiatric/Behavioral: The patient is nervous/anxious. Physical Exam Constitutional: He is oriented to person, place, and time. He appears well- developed and well-nourished. No distress. Eyes: EOM are normal. Cardiovascular: Normal rate. Pulmonary/Chest: Effort normal. Neurological: He is alert and oriented to person, place, and time. Skin: Skin is warm and dry. Psychiatric: He has a normal mood and affect. Back Exam Comments: No lesions rashes or hair akshat, no Palp tenderness FROM spurlings maneuver is negative bilaterally upper ext strength 5/5 soft touch diminished entire left arm reflexes 1 radial pulse 2 sales's sign neg tinel sign + bilateral wrist left greater than right Lhermittes sign neg Neurologic Exam Mental Status Oriented to person, place, and time. Cranial Nerves CN III, IV, Extraocular motions are normal. The prior workup of the patient includes: Cervical films revealed very mild disk degeneration at C3-4. This is minimal. Question of mild uncovertebral spurring on the left at this level as well. Otherwise mild loss of cervical lordosis. Disk space height is otherwise well preserved. No significant degenerative changes, otherwise no fractures. Assessment Back pain, multifactorial. I think the majority of his symptoms are related to whiplash-like syndrome given his long history of wrestling and episodes of increased neck pain based on his wrestling moves. Physical exam reveals no signs of radiculopathy, but does have signs of bilateral carpal tunnelsyndrome, left greater than right. We discussed options including expectant management as well as an anesthesia pain service consult to discuss injections in treatment of his discomfort. At this point he is not sure he wants to do that. I noted that if his hand numbness becomes more persistent, I would suggest following up with the upper extremity service and gain their insight as to what would be the best treatment options. PT versus injections versus surgery. Otherwise, activity as tolerated.Follow up p.r.n. Dr Miranda was available for consultation but was not consulted. No orders of the defined types were placed in this encounter. Plan: documented in this encounter Plan of Treatment Not on file documented as of this encounter Visit Diagnoses Diagnosis Neck pain- Primary Cervicalgia Bilateral carpal tunnel syndrome Carpal tunnel syndrome documented in this encounter Care Teams Cement Contractor Relationship Specialty Start Date End Date Sunita Cooper MD [address] [place] [address] PCP - General 07/14/13 documented as of this encounter
--- OUTSIDE RECORDS SUMMARY | 2024-01-06 15:03 | XMS_ITS | Encounter Summary ---
Author Organization [facility] Address [address] [place] [address] Care Team Providers Care Prevocational/Rehabilitation Counselor Name Role Phone Sunita Cooper MD Primary Care Provider [phone] Reason for Visit * Reason Onset Date Comments Referral Request 05/09/2020 Encounter Details Date Type Department Care Team (Late st Contact Info) Description 05/09/2020 Telephone [facility] Neurology - [address] [address] Unknown, Provider, Referral Request Social History Tobacco Use Types Packs/Day Years [...] No 03/24/2018 documented as of this encounter Miscellaneous Notes * Telephone Encounter - Michelle Salvador - 05/09/2020 1320 EST PCP called to schedule pt, referral in triage documented in this encounter Plan of Treatment Not on file documented as of this encounter Visit Diagnoses Not on filedocumented in this encounter Care Teams Prevocational/Rehabilitation Counselor Relationship Specialty Start Date End Date Sunita Cooper MD [address] [place] [address] PCP - General 07/14/13 documented as of this encounter
--- OUTSIDE RECORDS SUMMARY | 2024-01-06 15:03 | XMS_ITS | Encounter Summary ---
Author Organization [facility] Address [address] [place] [address] Care Team Providers Care Towerman Name Role Phone Sunita Cooper MD Primary Care Provider [phone] Encounter Details Date Type Department Care Team (Late st Contact Info) Description 12/15/2016 Results Only [facility] [phone] Rachana Hamilton MD [address] [place] [phone] Social History Tobacco Use Types Packs/Day [...] Comments CHLAMYDIA/N. GONORRHOEAE AMPLIFIED RNA, URINE Routine 12/15/2016 15:01 EDT documented in this encounter Results * CHLAMYDIA/N. GONORRHOEAE AMPLIFIED RNA, URINE (12/15/2016 15:01 EDT) Chlamydia Result Negative 12/16/2016 12:37 EDT [facility] GC Result Negative 12/16/2016 12:37 EDT [facility] URINE / Unknown 12/15/2016 1 5:01 EDT 12/15/2016 20:12 EDT Rachana Hamilton MD MICROBIOLOGY - GEN ERAL ORDERABLES [facility] [address] [place] [address] documented in this encounter Visit Diagnoses Not on filedocumented in this encounter Care Teams Towerman Relationship Specialty Start Date End Date Sunita Cooper MD [address] [place], [place] [id number] PCP - General 07/14/13 documented as of this encounter
[2024-01-06 15:46] LABS: Anion Gap 9.2 mmol/L (3-11); BUN 9 mg/dL (7-18); CO2 28.8 mmol/L (21.0-32.0); Calcium 9.7 mg/dL (8.5-10.1); Chloride 105 mmol/L (98-107); Estimated GFR 104.48 (mL/min/1.73m2); Glucose 95 mg/dL (74-106); Potassium 4.3 mmol/L (3.5-5.1); Sodium 143 mmol/L (136-145); TSH (W/Ref FT4) 0.63 uIU/mL (0.36-3.74)
== END 2024-01-06 15:00 | disposition home or self-care (01) ==
LOC: NCHCN 14:59
PROVIDERS: Visit Provider Family Medicine
DX: K58.9 Irritable bowel syndrome, unspecified (principal); F41.9 Anxiety disorder, unspecified
CPT/HCPCS: 80048; 85027; 84443

== ENCOUNTER 2024-03-25 18:43 | Emergency (ER) | payer OTHER, SELFPAY ==
[2024-03-25] VITALS (13 sets, daily range): BP systolic 116–135; BP diastolic 68–74; PULSE 67–95; RESP 16–18; TEMP 35.9; O2SAT 96–100
--- NOTE | 2024-03-25 19:00 | DI.CT_ITS ---
Exam(s) CT UPPER EXTREMITY LT CTA EXAM: CT UPPER EXTREMITY LT CTA CLINICAL HISTORY: L arm swollen discolored, vasc pathology. TECHNIQUE: Imaging Protocol: Axial CT angiography was performed with multi-slice acquisition and mu lti-planar and/or 3D reconstructions. CONTRAST MATERIAL: Intravenous: Omnipaque 350 Contrast volume:77 mL COMPARISON: No exams were available for comparison FINDINGS: Vascular Structures: Visualized thoracic aortic arch: No evidence of occlusion, dissection or significant stenosis. Visualized common carotid arteries: No evidence of dissection, occlusion or significant stenosis. Visualized brachiocephalic arteries: No evidence of dissection, occlusion or significant stenosis. Left axillary artery: No aneurysm, occlusion or significant stenosis. Left brachial artery: No evidence of dissection, occlusion or significant stenosis. Left radial and ulnar arteries: No evidence of occlusion or significant stenosis. Soft Tissues: There is subcutaneous edema seen in the soft tissues of the left upper extremity from t he axilla to the soft tissues of the hand and wrist. No focal fluid collection is seen to suggest an abscess. The musculature appears grossly unremarkable in the left upper extremity. Bones: No acute fracture or dislocation. No findings to suggest osteomyelitis. IMPRESSION: 1. Normal CT angiogram of the left upper extremity. No evidence of occlusion or significant stenosis . 2. No acute fracture or dislocation. 3. Diffuse soft tissue edema in the left upper extremity without focal fluid collection to suggest an abscess. RADIATION DOSE DELIVERED: 386.57mGy.cm Total DLP 386.57mGy.cm Total DLP DATA REPOSITORY: All CT scans at this facility are submitted to the National Radiology Data Registry (NRDR) Dose Index Registry (DIR) with the [employer] (ACR). RADIATION OPTIMIZATION: All CT scans at this facility use at least one of these dose optimization te chniques: automated exposure control; mA and/or kV adjustment per patient size (includes targeted exa ms where dose is matched to clinical indication); or iterative reconstruction.
--- NOTE | 2024-03-25 19:00 | DI.CT_ITS ---
Exam(s) CT THORAX CTA EXAM: CT THORAX CTA CLINICAL HISTORY: L arm swelling, ?subclavian pathology. TECHNIQUE: Imaging Protocol: Axial CT angiography was performed with multi-slice acquisition and mu lti-planar and/or 3D reconstructions. Computer aided detection (CAD) was utilized. CONTRAST MATERIAL: Intravenous: Omnipaque 350 contrast volume:70 mL COMPARISON: No exams were available for comparison FINDINGS: Tracheobronchial tree: Patent where visualized. No bronchiectasis. Pulmonary parenchyma: No consolidation or dominant measurable mass. No architectural distortion. Pulmonary Arteries: Due to the timing of the bolus, the pulmonary arteries are inadequately opacified for evaluation of pulmonary emboli. Veins: There is a question of narrowing of the distal right subclavian vein. Mediastinum and Terri: No dominant adenopathy or fluid collection. The esophagus is unremarkable. Visualized thyroid gland: Unremarkable. Pleura: No effusion or pneumothorax. Heart: The heart is not dilated. No coronary artery calcifications are seen. No pericardial effusion. Aorta: Thoracic aorta non-dilated. No evidence of dissection. Upper abdomen: Unremarkable. Soft tissues: There is mild edema seen in the soft tissues along the lateral aspect of the left chest wall and left axilla. There is an enlarged, but otherwise benign-appearing, lymph node measuring 2. 7 cm in the left axilla. This may be reactive. There is mild gynecomastia. Bones: Within normal limits for the patient's age. IMPRESSION: 1. No evidence of thoracic aortic aneurysm or dissection. 2. No acute pulmonary process. 3. Mild edema seen in the soft tissues along the left lateral chest wall and left axilla. This may r epresent a cellulitis. No focal fluid collection is seen to suggest an abscess. 4. Mildly enlarged reactive left axillary lymph node. 5. Question of narrowing of the distal right subclavian vein. Follow-up as clinically appropriate. RADIATION DOSE DELIVERED: 386.57mGy.cm Total DLP 386.57mGy.cm Total DLP DATA REPOSITORY: All CT scans at this facility are submitted to the National Radiology Data Registry (NRDR) Dose Index Registry (DIR) with the [employer] (ACR). RADIATION OPTIMIZATION: All CT scans at this facility use at least one of these dose optimization te chniques: automated exposure control; mA and/or kV adjustment per patient size (includes targeted exa ms where dose is matched to clinical indication); or iterative reconstruction.
[2024-03-25 19:32] LABS: Abs Immature Grans 0.04 10^3/uL (0.0-0.06); Absolute Basophil Count 0.07 10^3/uL (0.0-0.2); Absolute Eosinophil Count 0.13 10^3/uL (0.0-0.7); Absolute Lymphocyte Count 1.76 10^3/uL (1.2-3.4); Absolute Monocyte Count 0.65 10^3/uL (0.1-0.8); Absolute Neutrophil Count 7.08 10^3/uL (1.2-6.7); Basophils % 0.7 %; Eosinophils % 1.3 %; HCT 42.4 % (40.0-50.0); HGB 14.1 g/dL (13.5-17.5); Immature Grans % 0.4 %; Lactate 0.4 mmol/L (0.6-1.4); Lymphocytes % 18.1 %; MCH 30.3 pg (27.0-33.0); MCHC 33.3 % (32.0-36.0); MCV 91 fL (80-95); MPV 9.5 fL (8.0-11.0); Monocytes % 6.7 %; Neutrophils % 72.8 %; Platelet Count 202 10^3/uL (130-400); RBC 4.65 10^6/uL (4.36-5.78); RDW 13.3 % (11.8-14.1); RDW-SD 45.1 fL; WBC 9.73 10^3/uL (4.4-10.8)
[2024-03-25 19:34] LABS: ESR < 1 mm/hr (0-15)
[2024-03-25] MEDS: Omnipaque 350 MG/ML 100 ML BTL IJ (19:46)
[2024-03-25] MEDS: Normal Saline - Diluent 50 ML VIAL IJ (19:47)
[2024-03-25 19:48] LABS: PTT Activated 27.3 sec (23.6-32.8); Prothrombin Time 9.9 sec (9.1-11.1)
[2024-03-25] MEDS: Omnipaque 350 MG/ML 50 ML BTL IJ (19:48)
[2024-03-25 19:51] LABS: ALT 20 U/L (16-63); AST 16 U/L (15-37); Albumin 3.9 g/dL (3.4-5.0); Alkaline Phosphatase 106 U/L (46-116); Anion Gap 8.1 mmol/L (3-11); BUN 14 mg/dL (7-18); Bilirubin, Total 0.43 mg/dL (0.2-1.0); CO2 29.9 mmol/L (21.0-32.0); CREATININE 0.9 mg/dL (0.70-1.30); Calcium 8.9 mg/dL (8.5-10.1); Chloride 104 mmol/L (98-107); Estimated GFR 118.57 (mL/min/1.73m2); Glucose 100 mg/dL (74-106); Potassium 3.7 mmol/L (3.5-5.1); Sodium 142 mmol/L (136-145); Total Protein 7.3 g/dL (6.4-8.2)
[2024-03-25 19:54] LABS: C-Reactive Protein < 0.50 mg/dL (<or=0.5)
--- OUTSIDE RECORDS SUMMARY | 2024-03-25 20:21 | XMS_ITS | Encounter Summary ---
Author Organization [facility] Address [address] [place] [address] Care Team Providers Care Global Technical Writer Name Role Phone Unknown, Provider Primary Care Provider Unava ilable Encounter Details Date Type Department Care Team (Latest Contact Info) Description 10/21/2012 13:08 EDT - 10/21/2012 13:09 EDT Hospital Encounter [address] [address] Sunita Cooper MD [address] [place] [address] Discharge Disposition: Home or Self Care Social [...] on filedocumented in this encounter Care Teams Global Technical Writer Relationship Specialty Start Date End Date Unknown, Provider, PCP - General 10/10/11 07/13/13 documented as of this encounter
--- OUTSIDE RECORDS SUMMARY | 2024-03-25 20:21 | XMS_ITS | Encounter Summary ---
Author Organization [facility] Address [address] [place] [address] Care Team Providers Care History Teacher Name Role Phone Sunita Cooper MD Primary Care Provider [phone] Reason for Visit * Reason Comments Rash Encounter Details Date Type Department Care Team (Latest Contact Info) Description 07/14/2013 9:57 EST - 07/14/2013 13:44 EST Hospital Encounter [facility] - [address] [id number] Felipe Orantes MD [address] [place] [phone] Unknown, Provider, MD Phelan (Primary Dx) Discharge Disposition: Home or Self [...] per the package instructions. It is available [id number]. You should follow up with a provider if you find your symptoms do not improve. Otherwise follow up acutely if you have worsening or new symptoms. * Attachments The following attachments cannot be sent through Care Everywhere. 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 He feels well The history is [...] very early tinea. 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 They have paperwork to be [...] of further medications. Upon departure from the [facility], the patient's pain was 0 on a zero to ten scale. Condition at departure from the [facility]: Stable Final diagnoses: Rash No supervision required. [...] eruption documented in this encounter Care Teams History Teacher Relationship Specialty Start Date End Date Sunita Cooper MD [address] [place] [address] PCP - General 07/14/13 documented as of this encounter
--- OUTSIDE RECORDS SUMMARY | 2024-03-25 20:21 | XMS_ITS | Referral Summary ---
Author Organization [facility] Address [address] [place] [address] Care Team Providers Care Regulatory Process Manager Name Role Phone Sunita Cooper MD Primary Care Provider [phone] Allergies No known active allergies Medications No [...] of Treatment Not on file Care Teams Regulatory Process Manager Relationship Specialty Start Date End Date Sunita Cooper MD [address] [place] [address] PCP - General 07/14/13
--- OUTSIDE RECORDS SUMMARY | 2024-03-25 20:21 | XMS_ITS | Encounter Summary ---
Author Organization [facility] Address [address] [place] [address] Care Team Providers Care Manager Labor Delivery Name Role Phone Sunita Cooper MD Primary Care Provider [phone] Encounter Details Date Type Department Care Team (Late st Contact Info) Description 03/09/2018 Historical Results Only [facility] - [address] [address] [place] [address] [place] [address] Social History Tobacco Use Types [...] Date/Time Associated Diagnosis Comments PHARYNGITIS SCREEN - [facility] Routine 03/09/2018 17:07 EDT documented in this encounter Results * PHARYNGITIS SCREEN - [facility] (03/09/2018 17:07 EDT) BETA HEMOLYTIC STREP NOT GRP A - CV MEDICAL COST CONSULTANT 03/12/2018 12:35 EDT [facility] QUANT - [facility] FEW 03/12/2018 12:35 EDT [facility] USUAL ORAL/PHARYNGEA L MAKEDA - CV UTF 03/12/2018 12:35 EDT [facility] QUANT - [facility] PRESENT 03/12/2018 12:35 EDT [facility] 03/09/2018 17:0 7 EDT 03/10/2018 14:30 EDT Cachorro Yuan MD CHEMISTRY & BLOOD GAS ORDERABLES [facility] documented in this encounter Visit Diagnoses Not on filedocumented in this encounter Care Teams Manager Labor Delivery Relationship Specialty Start Date End Date Sunita Cooper MD [address] [place] [address] PCP - General 07/14/13 documented as of this encounter
--- OUTSIDE RECORDS SUMMARY | 2024-03-25 20:21 | XMS_ITS | Encounter Summary ---
Author Organization [facility] Address [address] [place] [address] Care Team Providers Care Mechanic Marine Engine Name Role Phone Sunita Cooper MD Primary Care Provider [phone] Encounter Details Date Type Department Care Team (Late st Contact Info) Description 12/15/[address] [facility] [phone] Rachana Hamilton MD [address] [place] [phone] Social History Tobacco Use Types Packs/Day [...] EDT) Chlamydia Result Negative 12/16/2016 12:37 EDT [facility] GC Result Negative 12/16/2016 12:37 EDT [facility] URINE / Unknown 12/15/2016 1 5:01 EDT 12/15/2016 20:12 EDT Rachana Hamilton MD MICROBIOLOGY - GEN ERAL ORDERABLES [facility] [address] [place] [address] documented in this encounter Visit Diagnoses Not on filedocumented in this encounter Care Teams Mechanic Marine Engine Relationship Specialty Start Date End Date Sunita Cooper MD [address] [place], [place] [id number] PCP - General 07/14/13 documented as of this encounter
--- OUTSIDE RECORDS SUMMARY | 2024-03-25 20:21 | XMS_ITS | Clinical Summary ---
Author Organization [facility] Address [address] [place] [address] Care Team Providers Care Nutrition Technician Name Role Phone Sunita Cooper MD Primary Care Provider [phone] Allergies No known active allergies Medications No [...] COVID-19 Vaccine ( season) 2023 Care Teams Nutrition Technician Relationship Specialty Start Date End Date Sunita Cooper MD [address] [place] [address] PCP - General 07/14/13
--- OUTSIDE RECORDS SUMMARY | 2024-03-25 20:21 | XMS_ITS | Encounter Summary ---
Author Organization [facility] Address [address] [place] [address] Care Team Providers Care Bacteriology Research Assistant Name Role Phone Unavailable Primary Care Provider Unavailabl e Encounter Details Date Type Department Care Team (Latest Contact Info) Description 03/30/2003 21:58 EST Hospital Encounter [facility] - Other [address] [place] [address] Kayy Sanchez MD [address] [place] [address] [address] [place] [address] Discharge Disposition: Auto Discharge Social History Tobacco [...]
--- OUTSIDE RECORDS SUMMARY | 2024-03-25 20:21 | XMS_ITS | Encounter Summary ---
Author Organization [facility] Address [address] [place] [address] Care Team Providers Care Executive Legal Secretary Name Role Phone Sunita Cooper MD Primary Care Provider [phone] Reason for Visit * Reason Onset Date Comments Medications Refill 08/09/2013 Encounter Details Date Type Department Care Team (Late st Contact Info) Description 08/09/2013 Telephone [facility] - [address] [phone] Md Americo Provider, [employer]ING UNIT OPERATOR Medications Refill Social History Tobacco Use [...] made aware medication is otc, will go pickling tank operator and use 2 times/day for 2 weeks. [...] on filedocumented in this encounter Care Teams Executive Legal Secretary Relationship Specialty Start Date End Date Sunita Cooper MD [address] [place] [address] PCP - General 07/14/13 documented as of this encounter
--- OUTSIDE RECORDS SUMMARY | 2024-03-25 20:21 | XMS_ITS | Encounter Summary ---
Author Organization [facility] Address [address] [place] [address] Care Team Providers Care Data Capture Specialist Name Role Phone Unknown, Provider MD Primary Care Provider Unava ilable Encounter Details Date Type Department Care Team (Late st Contact Info) Description 10/21/2012 Results Only [facility] - [facility] ([facility]) [address] [place] [address] Sunita Cooper MD [address] [place] [address] Social History Tobacco Use Types Packs/Day Years [...] Result No Chlamydia trachomatis DNA detected by rn relief charge mediated amplification. [facility] GC Result No Neisseria gonorrhoeae DNA detected by rn relief charge mediated amplification. [facility] 10/21/2012 13:4 8 EDT 10/21/2012 19:37 EDT Sunita Cooper MD MICROBIOLOGY - GENER AL ORDERABLES Performing Organization Address City/State/[facility] Co de Phone Number [facility] [address] [place] [address] documented in this encounter Visit Diagnoses Not on filedocumented in this encounter Care Teams Data Capture Specialist Relationship Specialty Start Date End Date Unknown, Provider, PCP - General 10/10/11 07/13/13 documented as of this encounter
--- OUTSIDE RECORDS SUMMARY | 2024-03-25 20:21 | XMS_ITS | Encounter Summary ---
Author Organization [facility] Address [address] [place] [address] Care Team Providers Care Lace Pinner Name Role Phone Unavailable Primary Care Provider Unavailabl e Encounter Details Date Type Department Care Team (Late st Contact Info) Description 03/30/2003 Results Only [facility] [address] [place] [address] Kayy Sanchez MD [address] [place] [address], [place] [address] [place] [address] Social History Tobacco Use Types Packs/Day Years [...] ISOLATED [facility] Report Status Final [id number] [facility] 03/30/2003 14:0 0 EST 03/30/2003 18:11 EST Kayy Sanchez MD MICROBIOLOGY - GENERAL ORDERABLES [facility] [address] [place] [address] documented in this encounter Visit Diagnoses Not on filedocumented in this encounter
--- OUTSIDE RECORDS SUMMARY | 2024-03-25 20:21 | XMS_ITS | Encounter Summary ---
Author Organization [facility] Address [address] [place] [address] Care Team Providers Care Parts Sales Advisor Name Role Phone Unavailable Primary Care Provider Unavailabl e Encounter Details Date Type Department Care Team (Late st Contact Info) Description 09/04/2003 14:25 EDT Hospital Encounter [facility] - Other [address] [place] [address] Adryan Dodson MD Social History Tobacco Use [...]
--- OUTSIDE RECORDS SUMMARY | 2024-03-25 20:21 | XMS_ITS | Encounter Summary ---
Author Organization [facility] Address [address] [place] [address] Care Team Providers Care Immigration Associate Name Role Phone Sunita Cooper MD Primary Care Provider [phone] Encounter Details Date Type Department Care Team (Late st Contact Info) Description 12/09/2018 Results Only [facility] [phone] Aleshia Feliz, COMPLIANCE INVESTIGATOR-C [address] [place] [phone] Social History Tobacco Use Types Packs/Day Years [...] EDT) Chlamydia Result Negative 12/10/2018 14:14 EDT [facility] GC Result Negative 12/10/2018 14:14 EDT [facility] URINE / Unknown 12/09/2018 1 2:36 EDT 12/09/2018 20:09 EDT Aleshia Feliz COMPLIANCE INVESTIGATOR-C MICROBIOLOGY - GENER AL ORDERABLES [facility] [address] [place] [address] documented in this encounter Visit Diagnoses Not on filedocumented in this encounter Care Teams Immigration Associate Relationship Specialty Start Date End Date Sunita Cooper MD [address] [place], [place] [phone] PCP - General 07/14/13 documented as of this encounter
--- OUTSIDE RECORDS SUMMARY | 2024-03-25 20:21 | XMS_ITS | Encounter Summary ---
Author Organization [facility] Address [address] [place] [address] Care Team Providers Care Geospatial Technician Name Role Phone Unknown, Provider MD Primary Care Provider Unava ilable Encounter Details Date Type Department Care Team (Late st Contact Info) Description 10/10/2011 Results Only [facility] - [facility] ([facility]) [address] [place] [id number] Madonna Salmon MD [address] [place] [phone] Social History Tobacco Use Types Packs/Day [...] - GENERAL ORDERABLES [facility] [address] [place] [address] documented in this encounter Visit Diagnoses Not on filedocumented in this encounter Care Teams Geospatial Technician Relationship Specialty Start Date End Date Unknown, Provider, PCP - General 10/10/11 07/13/13 documented as of this encounter
--- OUTSIDE RECORDS SUMMARY | 2024-03-25 20:21 | XMS_ITS | Encounter Summary ---
Author Organization [facility] Address [address] [place] [address] Care Team Providers Care Clinical Application Consultant Name Role Phone Unknown, Provider Primary Care Provider Unava ilable Encounter Details Date Type Department Care Team (Latest Contact Info) Description 10/10/2011 15:03 EDT - 10/10/2011 15:04 EDT Hospital Encounter [facility] - [address] [address] Madonna Salmon MD [address] [place] [phone] Discharge Disposition: Home or Self Care [...] on filedocumented in this encounter Care Teams Clinical Application Consultant Relationship Specialty Start Date End Date Unknown, Provider, PCP - General 10/10/11 07/13/13 documented as of this encounter
--- OUTSIDE RECORDS SUMMARY | 2024-03-25 20:21 | XMS_ITS | Encounter Summary ---
Author Organization [facility] Address [address] [place] [address] Care Team Providers Care Tank Insulator Rubber Name Role Phone Sunita Cooper MD Primary Care Provider [phone] Encounter Details Date Type Department Care Team (Late st Contact Info) Description 11/12/2015 11:36 EDT - 11/12/2015 11:37 EDT Hospital Encounter [facility] [place] - [address] [address] Rachana Hamilton MD [address] [place] [address] Discharge Disposition: Home or Self [...] on filedocumented in this encounter Care Teams Tank Insulator Rubber Relationship Specialty Start Date End Date Sunita Cooper MD [address] [place], [place] [phone] PCP - General 07/14/13 documented as of this encounter
--- OUTSIDE RECORDS SUMMARY | 2024-03-25 20:21 | XMS_ITS | Encounter Summary ---
Author Organization [facility] Address [address] [place] [address] Care Team Providers Care Subacute Nurse Name Role Phone Sunita Cooper MD Primary Care Provider [phone] Encounter Details Date Type Department Care Team (Late st Contact Info) Description 05/14/2022 Lab Requisition [facility] Pathology & Laboratory Medicine - [facility] [address] [place] [address] Outr Resulting Lab, Provider Social History Tobacco [...] IGA <1.2 <4.0 U/mL 05/15/2022 12:21 EST [facility] Comment: A negative result may be due to IgA deficiency and does not rule out celiac disease. ? Negative: ??<4.0 U/mL ? Weak Positive: ??4.0 - 10.0 U/mL ? Positive: ??>10.0 U/mL Results were obtained with the MANGO BCNA Lite R h-tTG IgA ROB assay on the Pervacio DSX. IgA 141 85 - 499 mg/dL 05/15/2022 12:21 EST [facility] Celiac Disease Interpretation Negative Serology. Celiac disease unlikely. Approximately 10% of patients with celiac disease are seronegative. Patients who are already adhering to a gluten-free diet may also be seronegative. If celiac disease is highly clinically suspected, referral to gastroenterology for additional evaluation is recommended. 05/15/2022 12:21 EST [facility] Blood VENOUS BLOOD / Unknown 05/14/2022 10:33 EST 05/14/2022 21:40 EST Provider Outr Resulting Lab IMMUNOLOGY A ND SEROLOGY ORDERABLES Performing Organization Address City/State/[facility] Co de Phone Number [facility] [address] [place] [address] documented in this encounter Visit Diagnoses Not on filedocumented in this encounter Care Teams Subacute Nurse Relationship Specialty Start Date End Date Sunita Cooper MD [address] [place] [address] PCP - General 07/14/13 documented as of this encounter
--- OUTSIDE RECORDS SUMMARY | 2024-03-25 20:21 | XMS_ITS | Encounter Summary ---
Author Organization [facility] Address [address] [place] [address] Care Team Providers Care Machine Cutter Name Role Phone Unavailable Primary Care Provider Unavailabl e Encounter Details Date Type Department Care Team (Latest Contact Info) Description 11/25/2005 16:06 EDT Hospital Encounter [facility] [address] [place] [address] Adryan Dodson MD Discharge Disposition: Auto Discharge [...] anterior r/o foreigh body entrap wet rd [phone] CHEST PA AND LATERAL CLINICAL HISTORY: Swallowed [...] anterior r/o foreigh body entrap wet rd [phone] CHEST PA AND LATERAL CLINICAL HISTORY: Swallowed [...]
--- OUTSIDE RECORDS SUMMARY | 2024-03-25 20:21 | XMS_ITS | Encounter Summary ---
Author Organization [facility] Address [address] [place] [address] Care Team Providers Care Dimensional Integration Engineer Name Role Phone Sunita Cooper MD Primary Care Provider [phone] Reason for Visit * Reason Comments Neck Pain * Consult, Test and Treat (Routine) - Closed Specialty Diagnoses / Procedures Referred By Sheila wick Referred To Contact Orthopedic Surgery Diagnoses Neck pain Debby Guadarrama MD [address] [place] [phone] [facility] Ortho Spine [address] [place] [address] Referral ID Status Reason Start Date Expiration Date Visits Re quested Visits Authorized [id number] Closed 1 1 Encounter Details Date Type Department Care Team (Late st Contact Info) Description 04/06/2018 14:45 EST Office Visit [facility] Spine Program [place] [address] Dandre Roe PA-C [address] [facility] [place] [address] Neck pain (Primary Dx); Bilateral [...] has not seen a physical therapist, received career developer or injection therapy. His symptoms can be [...] syndrome documented in this encounter Care Teams Dimensional Integration Engineer Relationship Specialty Start Date End Date Sunita Cooper MD [address] [place] [address] PCP - General 07/14/13 documented as of this encounter
--- OUTSIDE RECORDS SUMMARY | 2024-03-25 20:21 | XMS_ITS | Encounter Summary ---
Author Organization [facility] Address [address] [place] [address] Care Team Providers Care Web Site Specialist Name Role Phone Sunita Cooper MD Primary Care Provider [phone] Reason for Referral * Radiology Services (Routine) - Closed Specialty Diagnoses / Procedures Referred By Sheila wick Referred To Contact Diagnoses Neck pain Procedures CERVICAL SPINE 2-3 VIEWS Dandre Roe PA-C [address] [place], [place] [address] [place] [address] Referral ID Status Reason Start Date Expiration Date Visits Re quested Visits Authorized [id number] Closed 04/06/2018 1 1 Encounter Details Date Type Department Care Team (Late st Contact Info) Description 04/06/2018 Orders Only [facility] Spine Program [place] [address] [place] [address] Dandre Roe PA-C [address] [place] [phone] Neck pain (Primary Dx) Social History [...] 2-3 VIEWS ??04/06/2018 2:58 PM Clinical History/Comments: M54.4-Bcaiscmerrc-WRD-10; neck pain. Technique: 2 views of the cervical spine Comparison: None. Findings: Slight reversal of the normal cervical curvature. No significant spondylolisthesis. Vertebral body heights are normal. Disc heights are normal. No significant facet arthropathy identified. Prevertebral soft tissues are unremarkable. Procedure Note Alejandro Leo MD - 04/07/2018 CERVICAL SPINE 2-3 VIEWS 04/06/2018 2:58 PM Clinical History/Comments: M54.6-Sbobgegvzih-NHV-10; neck pain. Technique: 2 views of the [...] Cervicalgia documented in this encounter Care Teams Web Site Specialist Relationship Specialty Start Date End Date Sunita Cooper MD [address] [place] [address] PCP - General 07/14/13 documented as of this encounter
--- OUTSIDE RECORDS SUMMARY | 2024-03-25 20:21 | XMS_ITS | Encounter Summary ---
Author Organization [facility] Address [address] [place] [address] Care Team Providers Care Fire Management Specialist Name Role Phone Suinta Cooper MD Primary Care Provider [phone] Reason for Referral * Radiology Services (Routine) - New Request Specialty Diagnoses / Procedures Referred By Sheila wick Referred To Contact Diagnoses Low back pain, unspecified back pain laterality, unspecified chronicity, with sciatica presence unspecified Procedures L SPINE 2-3 VIEWS Dandre Roe PA-C [address] [place] [address] Referral ID Status Reason Start Date Expiration Date V isits Requested Visits Authorized [id number] New Request 03/02/2018 1 1 Encounter Details Date Type Department Care Team (Late st Contact Info) Description 02/26/2018 Orders Only [facility] Spine Program [place] [address] [place] [address] Dandre Roe PA-C [address] [place] [address] Low back pain, unspecified back [...] Primary documented in this encounter Care Teams Fire Management Specialist Relationship Specialty Start Date End Date Sunita Cooper MD [address] [place] [phone] PCP - General 07/14/13 documented as of this encounter
--- OUTSIDE RECORDS SUMMARY | 2024-03-25 20:21 | XMS_ITS | Encounter Summary ---
Author Organization [facility] Address [address] [place] [address] Care Team Providers Care Human Capital Consultant Name Role Phone Sunita Cooper MD Primary Care Provider [phone] Encounter Details Date Type Department Care Team (Late st Contact Info) Description 12/15/2016 19:36 EDT - 12/15/2016 23:59 EDT Hospital Encounter [address] [address] Rachana Hamilton MD [address] [place] [address] Discharge Disposition: Auto Discharge Social [...] on filedocumented in this encounter Care Teams Human Capital Consultant Relationship Specialty Start Date End Date Sunita Cooper MD [address] [place], [place] [phone] PCP - General 07/14/13 documented as of this encounter
--- OUTSIDE RECORDS SUMMARY | 2024-03-25 20:21 | XMS_ITS | Encounter Summary ---
Author Organization [facility] Address [address] [place] [address] Care Team Providers Care Hose Mender Name Role Phone Sunita Cooper MD Primary Care Provider [phone] Reason for Visit * Reason Onset Date Comments Referral Request 05/09/2020 Encounter Details Date Type Department Care Team (Late st Contact Info) Description 05/09/2020 Telephone [facility] Neurology - [address] [address] Unknown, Provider, MD Referral Request Social History Tobacco Use Types [...] on filedocumented in this encounter Care Teams Hose Mender Relationship Specialty Start Date End Date Sunita Cooper MD [address] [place] [address] PCP - General 07/14/13 documented as of this encounter
--- OUTSIDE RECORDS SUMMARY | 2024-03-25 20:21 | XMS_ITS | Encounter Summary ---
Author Organization [facility] Address [address] [place] [address] Care Team Providers Care Manager Competitive Intelligence Name Role Phone Unavailable Primary Care Provider Unavailabl e Encounter Details Date Type Department Care Team (Late st Contact Info) Description 09/04/2003 Results Only [facility] [address] [place] [address] Adryan Dodson MD Social History Tobacco Use [...] ISOLATED [facility] Report Status Final [id number] [facility] 09/04/2003 18:4 0 EDT 09/04/2003 18:40 EDT Adryan Dodson MD MICROBIOLOGY - GENER AL ORDERABLES [facility] [address] [place] [address] documented in this encounter Visit Diagnoses Not on filedocumented in this encounter
--- OUTSIDE RECORDS SUMMARY | 2024-03-25 20:21 | XMS_ITS | Encounter Summary ---
Author Organization [facility] Address [address] [place] [address] Care Team Providers Care Senior Mechanical Designer Name Role Phone Sunita Cooper MD Primary Care Provider [phone] Encounter Details Date Type Department Care Team (Late st Contact Info) Description 11/12/2015 Results Only [facility] [phone] Rachana Hamilton MD [address] [place] [phone] Social History Tobacco Use Types Packs/Day [...] isolated. Usual jamie-pharyngeal mini. 11/15/2015 8:31 EDT [facility] ENTIRE THROAT / Unknown 11/12/2015 17:07 EDT 11/12/2015 20:07 EDT Rachana Hamilton MD MICROBIOLOGY - GEN ERAL ORDERABLES [facility] [address] [place] [address] documented in this encounter Visit Diagnoses Not on filedocumented in this encounter Care Teams Senior Mechanical Designer Relationship Specialty Start Date End Date Sunita Cooper MD [address] [place] [phone] PCP - General 07/14/13 documented as of this encounter
--- OUTSIDE RECORDS SUMMARY | 2024-03-25 20:21 | XMS_ITS | Encounter Summary ---
Author Organization Health system Address [address] [place] [address] Care Team Providers Care Production Department Supervisor Name Role Phone Sunita Cooper MD Primary Care Provider [phone] Encounter Details Date Type Department Care Team (Latest Contact Info) Description 12/09/2018 17:44 EDT - 12/09/2018 17:45 EDT Hospital Encounter [address] [address] Aleshia Feliz, MEGAN-C [address] [place] [address] Discharge Disposition: Home or Self [...] on filedocumented in this encounter Care Teams Production Department Supervisor Relationship Specialty Start Date End Date Sunita Cooper MD [address] [place] [address] PCP - General 07/14/13 documented as of this encounter
--- OUTSIDE RECORDS SUMMARY | 2024-03-25 20:21 | XMS_ITS | Encounter Summary ---
Author Organization [facility] Address [address] [place] [address] Care Team Providers Care Vp Site Name Role Phone Sunita Cooper MD Primary Care Provider [phone] Reason for Visit * Reason Comments Back Pain lbp Encounter Details Date Type Department Care Team (Late st Contact Info) Description 03/24/2018 14:45 EST Office Visit [facility] Spine Program - [address] [place] [address] Dandre Roe PA-C [address] [place] [address] [place] [address] Chronic bilateral low back pain [...] has not seen a physical therapist, received landcare officer or injection therapy. HPI There is no [...] Primary documented in this encounter Care Teams Vp Site Relationship Specialty Start Date End Date Sunita Cooper MD [address] [place] [address] PCP - General 07/14/13 documented as of this encounter
--- NOTE | 2024-03-25 20:35 | ED.GENADUL_ITS ---
Discharge Plan Disposition Patient Disposition: Transfer-Acute Inpatient Care Specific Acute Inpt Facility: [facility] Condition: Stable Discharge Details Clinical Impression: Left upper extremity deep vein thrombosis, Subclavian vein occlusion Primary Care Provider: Brandon Rivera ED Provider: Shashank Ni Home Meds and New Rx's Prescriptions: No Action No Known Home Meds HPI General Date/Time Provider Initiated Documentation: 03/25/24 19:07 . HPI Narrative: 28 year-old male presents to ED today by POV/ambulating with a chief complaint of left arm swelling, skin and temperature changes, pain, states he works out and was working with a physical therapist and after worked with them he got swollen veins in the left arm over the last 3 days with some bruising to the shoulder. Quality described as sensation is numb and painful, endorses sensation in the hand, no radiation to slurred speech, dizziness, shortness of breath, does feel upper left chest pain as well as some pain in the right arm without skin or temperature changes or swelling. Severity is described as severe. Palliating factors include took some ibuprofen and noticed that helped a little bit but has not been taking every 6 hours. Provoking factors include nothing specific. Events leading up to the incident/Associated Symptoms: Patient denies known history of any clotting disorders, denies IV drug use history, appears healthy with no chronic medical conditions. Patient not anticoagulated. Related Data Home Medications ?Medication ?Instructions ?Recorded ?Confirmed Unknown [No Known Home Meds] 03/25/24 03/25/24 Allergies Allergy/AdvReac Type Severity Reaction Status Date / Time No Known Allergies Allergy Unverified 03/25/24 22:48 General Stated Complaint: Orthopedic JASPREET: 3 Review of Systems All systems reviewed & are unremarkable except as noted in HPI and below Exam Narrative Exam Narrative: GENERAL APPEARANCE: Well-nourished, non-toxic, awake and alert, atraumatic, no acute distress. SKIN: Warm, pink, dry, intact, without rashes/lesions/ulcerations. HEAD: Normocephalic, atraumatic, normal hair distribution for gender/age. EYES: Normal conjunctiva, no exudates on lids/lashes. ENT: Nares patent, no circumoral cyanosis, no facial swelling NECK: Supple, trachea midline, painless cervical ROM. LUNGS/CHEST: Lungs CTA bilaterally-no rhonchi/rales/wheezes diffusely, non-lab ored respirations, normal A/P diameter, symmetrical expansion, no chest wall deformity HEART (CV/PV): Regular rate and rhythm without murmur, no peripheral edema, no JVD. ABDOMEN: Soft, non-distended, no guarding. MSK: Normal ROM, no swelling/deformity to bilateral UEs or LEs, moving all extremities without weakness, no cyanosis, spine midline without tenderness, normal curvature L UE: Extensive bruising and hardness to palpation throughout the left upper extremity with some dusky skin changes of the left hand and reduced motor function of the hand, question faint palpable pulse at the left radial, sensation is intact but altered, as pain extending through the pec muscle into the chest likely with clot propagation NEURO: Mental Status AAOx4 - alert to person, place, time, events No facial droop, no forehead involvement. Motor: No focal weakness - strength 5/5 in bilateral UEs and LEs, proximal and distal, symmetric. Sensory: sensation intact to light touch globally. Gait normal: patient ambulated without ataxia into ED room. PSYCH: euthymic, cooperative, pleasant, appropriate speech Course Vital Signs Vital signs: Vital Signs Temperature 35.9 C L 03/25/24 18:53 Pulse 95 H 03/25/24 18:53 Respiratory Rate 18 03/25/24 18:53 Blood Pressure 116/68 03/25/24 18:53 Pulse Oximetry 100 03/25/24 18:53 Temperature 35.9 C L 03/25/24 18:53 Pulse 95 H 03/25/24 18:53 Respiratory Rate 18 03/25/24 18:53 Respiratory Effort Normal 03/25/24 18:58 Blood Pressure 116/68 03/25/24 18:53 Pulse Oximetry 100 03/25/24 18:53 Pain Level 5 03/25/24 18:53 Lab/Test Results Lab/Test Results: Laboratory Tests Range/Units 03/25/24 03/25/24 19:25 19:25 WBC (4.4-10.8) 10^3/uL 9.73 RBC (4.36-5.78) 10^6/uL 4.65 Hgb (13.5-17.5) g/dL 14.1 Hct (40.0-50.0) % 42.4 MCV (80-95) fL 91 MCH (27.0-33.0) pg 30.3 MCHC (32.0-36.0) % 33.3 RDW (11.8-14.1) % 13.3 Plt Count (130-400) 10^3/uL 202 MPV (8.0-11.0) fL 9.5 Immature Gran % % 0.4 Neutrophils % % 72.8 Lymphocytes % % 18.1 Monocytes % % 6.7 Eosinophils % % 1.3 Basophils % % 0.7 Nucleated RBC % (0.0-0.3) % 0.0 Absolute Neutrophils (1.2-6.7) 10^3/uL 7.08 H Absolute Lymphocytes (1.2-3.4) 10^3/uL 1.76 Absolute Monocytes (0.1-0.8) 10^3/uL 0.65 Absolute Eosinophils (0.0-0.7) 10^3/uL 0.13 Absolute Basophils (0.0-0.2) 10^3/uL 0.07 ESR (0-15) mm/hr < 1 PT (9.1-11.1) sec 9.9 INR (0.9-1.1) 1.0 APTT (23.6-32.8) sec 27.3 VBG Lactate (0.6-1.4) mmol/L 0.4 L Sodium (136-145) mmol/L 142 Potassium (3.5-5.1) mmol/L 3.7 Chloride (98-107) mmol/L 104 Carbon Dioxide (21.0-32.0) mmol/L 29.9 Anion Gap (3-11) mmol/L 8.1 BUN (7-18) mg/dL 14 Creatinine (0.70-1.30) mg/dL 0.9 Est GFR (CKD-EPI 2020) (mL/min/1.73m2) 118.57 Glucose (74-106) mg/dL 100 Calcium (8.5-10.1) mg/dL 8.9 Total Bilirubin (0.2-1.0) mg/dL 0.43 AST (15-37) U/L 16 ALT (16-63) U/L 20 Alkaline Phosphatase (46-116) U/L 106 C-Reactive Protein (<or=0.5) mg/dL < 0.50 Cancelled Total Protein (6.4-8.2) g/dL 7.3 Albumin (3.4-5.0) g/dL 3.9 Medical Decision Making This dictation utilizes [id number] dictation software and may contain unedited grammatical errors. 28 year-old male presents to ED today by POV/ambulating with a chief complaint of left arm swelling, skin and temperature changes, pain, states he works out and was working with a physical therapist and after worked with them he got swollen veins in the left arm over the last 3 days with some bruising to the shoulder. Quality described as sensation is numb and painful, endorses sensation in the hand, no radiation to slurred speech, dizziness, shortness of breath, does feel upper left chest pain as well as some pain in the right arm without skin or temperature changes or swelling. Severity is described as severe. Palliating factors include took some ibuprofen and noticed that helped a little bit but has not been taking every 6 hours. Provoking factors include nothing specific. Events leading up to the incident/Associated Symptoms: Patient denies known history of any clotting disorders, denies IV drug use history, appears healthy with no chronic medical conditions. Patients' medical history: Negative, otherwise healthy. Family and social history: Exercises regularly, eats well, lifts weights. Pertinent exam findings / vital signs include entire L UE: Extensive bruising and hardness to palpation throughout the left upper extremity with some dusky skin changes of the left hand and reduced motor function of the hand, question faint palpable pulse at the left radial, sensation is intact but altered, as pain extending through the pec muscle into the chest likely with clot propagation Differential / pathologies of concern include subclavian occlusion, upper extremity DVT. Diagnostic studies of: -CTA thorax, CTA left upper extremity, basic labs and coags. -CT shows severe occlusive pathology entire left subclavian and upper extremity, there is also noted occlusion of the right subclavian and narrowing of the right jugular Interventions of: -Heparin drip started, emergent consult to [facility] vascular surgery. ED Course/Assessment/Plan: This is a 28-year-old male with no health conditions who appears very healthy an d lifts weights presents with an acute ischemic or occlusive pathology to the left upper extremity, entire left upper extremity is likely venous clot as well as subclavian involvement, and a CTA of his chest and left upper extremity he has evidence of right subclavian occlusion. I spoke with vascular surgery on- call at [facility], they would prefer ED to ED transfer as this patient has a possibility to go to the OR this evening, ED accepting physician Dr. Delarosa accepts for ED to ED at [id number]. Heparin drip going, gentle compression wrap on arm. Disposition of DVT of Left Upper Extremity, Subclavian Vein Occlusion. Patient verbalized understanding of the plan and return to ED criteria and engaged in shared decision making. Medical Records Medical records reviewed: Yes I reviewed the patient's medical records. Imaging Data Radiologic Study: Attestation: I personally reviewed and interpreted this imaging study as follows: Imaging: CT Scan Radiologist's impression: Exam: CTA Chest With Contrast Exam date and time: 03/25/2024 7:35 PM Age: 28 years old Clinical indication: Other: L arm swelling, ? subclavian pathology TECHNIQUE: Imaging protocol: Computed tomographic angiography of the chest with contrast. Exam focused on the arteries. 3D rendering (Not supervised by radiologist): MIP and/or 3D reconstructed images were created by the technologist. Contrast material: 350; Contrast volume: 70 ml; Contrast route: INTRAVENOUS (IV); COMPARISON: CT UPPER EXTREMITY LT CTA 03/25/2024 7:35 PM FINDINGS: Pulmonary arteries: Normal. No pulmonary emboli. Aorta: Unremarkable. No aortic aneurysm. No aortic dissection. Veins: Moderate right neck chest collaterals secondary to narrowing/occlusion distal right subclavian vein in narrowing of the right jugular vein. Thyroid: No thyroid lesions. No thyroid enlargement. Trachea: Click lungThe central airways clear. Lungs: Unremarkable. No consolidation. No masses. Pleural spaces: Unremarkable. No pneumothorax. No pleural effusion. Heart: No cardiomegaly or pericardial effusion. Lymph nodes: Unremarkable. No enlarged lymph nodes. Bones/joints: No acute osseous abnormality. Soft tissues: Unremarkable. IMPRESSION: Moderate right neck chest collaterals secondary to narrowing/occlusion distal right subclavian vein in narrowing of the right jugular vein. This areas best seen on series 4, image 38 Dictated and Authenticated by: Joan Cuevas MD. Radiologic Study #2: My impression: DVT Radiologist's impression: Addendum created by Joan Cuevas MD on 03/25/2024 10:10:01 PM EST: These images are of the arterial system. If there is high clinical suspicion for venous occlusion recommend a venous study. Initial report created on 03/25/2024 9:12:24 PM EST: PROCEDURE INFORMATION: Exam: CT Left Upper Extremity With Contrast Exam date and time: 03/25/2024 7:35 PM Age: 28 years old Clinical indication: Swelling and other: L arm swollen discolored, vasc pathology; Upper limb; Left TECHNIQUE: Imaging protocol: Computed tomography of the left upper extremity with contrast. 3D rendering (Not supervised by radiologist): MIP and/or 3D reconstructed images were created by the technologist. Contrast material: 350; Contrast volume: 77 ml; Contrast route: INTRAVENOUS (IV); COMPARISON: CT THORAX CTA 03/25/2024 7:35 PM FINDINGS: Bones/joints: No fracture or dislocation. Soft tissues: Severe left proximal arm soft tissue edema. No evidence of abscess or skin thickening. Vasculature: Patent left subclavian, axillary, brachial, radial and ulnar arteries without evidence of occlusion, stenosis or injury. IMPRESSION: Severe left proximal arm soft tissue edema. No evidence of abscess or skin thickening. Dictated and Authenticated by: Joan Cuevas MD. Lab Data Lab results reviewed: Yes I reviewed the patient's lab results. Labs: Laboratory Tests Range/Units 03/25/24 03/25/24 19:25 19:25 WBC (4.4-10.8) 10^3/uL 9.73 RBC (4.36-5.78) 10^6/uL 4.65 Hgb (13.5-17.5) g/dL 14.1 Hct (40.0-50.0) % 42.4 MCV (80-95) fL 91 MCH (27.0-33.0) pg 30.3 MCHC (32.0-36.0) % 33.3 RDW (11.8-14.1) % 13.3 Plt Count (130-400) 10^3/uL 202 MPV (8.0-11.0) fL 9.5 Immature Gran % % 0.4 Neutrophils % % 72.8 Lymphocytes % % 18.1 Monocytes % % 6.7 Eosinophils % % 1.3 Basophils % % 0.7 Nucleated RBC % (0.0-0.3) % 0.0 Absolute Neutrophils (1.2-6.7) 10^3/uL 7.08 H Absolute Lymphocytes (1.2-3.4) 10^3/uL 1.76 Absolute Monocytes (0.1-0.8) 10^3/uL 0.65 Absolute Eosinophils (0.0-0.7) 10^3/uL 0.13 Absolute Basophils (0.0-0.2) 10^3/uL 0.07 ESR (0-15) mm/hr < 1 PT (9.1-11.1) sec 9.9 INR (0.9-1.1) 1.0 APTT (23.6-32.8) sec 27.3 VBG Lactate (0.6-1.4) mmol/L 0.4 L Sodium (136-145) mmol/L 142 Potassium (3.5-5.1) mmol/L 3.7 Chloride (98-107) mmol/L 104 Carbon Dioxide (21.0-32.0) mmol/L 29.9 Anion Gap (3-11) mmol/L 8.1 BUN (7-18) mg/dL 14 Creatinine (0.70-1.30) mg/dL 0.9 Est GFR (CKD-EPI 2020) (mL/min/1.73m2) 118.57 Glucose (74-106) mg/dL 100 Calcium (8.5-10.1) mg/dL 8.9 Total Bilirubin (0.2-1.0) mg/dL 0.43 AST (15-37) U/L 16 ALT (16-63) U/L 20 Alkaline Phosphatase (46-116) U/L 106 C-Reactive Protein (<or=0.5) mg/dL < 0.50 Cancelled Total Protein (6.4-8.2) g/dL 7.3 Albumin (3.4-5.0) g/dL 3.9 Quality:SDOH Health Related Social Needs: No Data to Display PFSH All Active Problems (Updated 03/25/24 @ 22:32 by JESSICA Guerrero) Subclavian vein occlusion (Acute) Left upper extremity deep vein thrombosis (Acute) Social History Smoking/Tobacco Use Status: Current-Occasional Tobacco Type: cigarettes Smoking risk assessment performed?: Yes Alcohol Intake: current Alcohol Intake frequency: a few times a month Drug use: Never Substance use type: marijuana Housing: apartment Do you feel safe at home: Yes Do you feel safe in your relationship?: Yes
--- NOTE | 2024-03-25 21:10 | DI.VRAD_ITS ---
PROCEDURE INFORMATION: Exam: CTA Chest With Contrast Exam date and time: 03/25/2024 7:35 PM Age: 28 years old Clinical indication: Other: L arm swelling, ? subclavian pathology TECHNIQUE: Imaging protocol: Computed tomographic angiography of the chest with contrast. Exam focused on the arteries. 3D rendering (Not supervised by radiologist): MIP and/or 3D reconstructed images were created by the technologist. Contrast material: 350; Contrast volume: 70 ml; Contrast route: INTRAVENOUS (IV); COMPARISON: CT UPPER EXTREMITY LT CTA 03/25/2024 7:35 PM FINDINGS: Pulmonary arteries: Normal. No pulmonary emboli. Aorta: Unremarkable. No aortic aneurysm. No aortic dissection. Veins: Moderate right neck chest collaterals secondary to narrowing/occlusion distal right subclavian vein in narrowing of the right jugular vein. Thyroid: No thyroid lesions. No thyroid enlargement. Trachea: Click lungThe central airways clear. Lungs: Unremarkable. No consolidation. No masses. Pleural spaces: Unremarkable. No pneumothorax. No pleural effusion. Heart: No cardiomegaly or pericardial effusion. Lymph nodes: Unremarkable. No enlarged lymph nodes. Bones/joints: No acute osseous abnormality. Soft tissues: Unremarkable. IMPRESSION: Moderate right neck chest collaterals secondary to narrowing/occlusion distal right subclavian vein in narrowing of the right jugular vein. This areas best seen on series 4, image 38 Dictated and Authenticated by: Joan Cuevas MD. Ordering:CHRISTOPHER Encarnacion MD
--- NOTE | 2024-03-25 21:13 | DI.VRAD_ITS ---
Addendum created by Joan Cuevas MD on 03/25/2024 10:10:01 PM EST: These images are of the arterial system. If there is high clinical suspicion for venous occlusion recommend a venous study. Initial report created on 03/25/2024 9:12:24 PM EST: PROCEDURE INFORMATION: Exam: CT Left Upper Extremity With Contrast Exam date and time: 03/25/2024 7:35 PM Age: 28 years old Clinical indication: Swelling and other: L arm swollen discolored, vasc pathology; Upper limb; Left TECHNIQUE: Imaging protocol: Computed tomography of the left upper extremity with contrast. 3D rendering (Not supervised by radiologist): MIP and/or 3D reconstructed images were created by the technologist. Contrast material: 350; Contrast volume: 77 ml; Contrast route: INTRAVENOUS (IV); COMPARISON: CT THORAX CTA 03/25/2024 7:35 PM FINDINGS: Bones/joints: No fracture or dislocation. Soft tissues: Severe left proximal arm soft tissue edema. No evidence of abscess or skin thickening. Vasculature: Patent left subclavian, axillary, brachial, radial and ulnar arteries without evidence of occlusion, stenosis or injury. IMPRESSION: Severe left proximal arm soft tissue edema. No evidence of abscess or skin thickening. Dictated and Authenticated by: Joan Cuevas MD. Ordering:CHRISTOPHER Encarnacion MD
[2024-03-25] MEDS: Heparin in 0.45% NaCl 25,000 UNIT/250 ML BAG 13 UNIT IVINF (21:30)
[2024-03-25] MEDS: MORPHine 10 MG/ML VIAL 6 MG IVP ×2 (21:40→22:17)
--- NOTE | 2024-03-25 23:10 | ED.PROG_ITS ---
Date of service: 03/25/24 Time of Service: 23:11 Medical Decision Making Case discussed with PA. [id number] evaluation provided by me secondary to medical complexity. Patient is a 28-year-old gentleman otherwise healthy presenting with extensive left upper extremity swelling. Examination consistent with cerulea dolens. High suspicion for occlusive process. Patient does have a palpable radial pulse. Edema is significant, but compartments are soft. Imaging consistent with occlusion. Heparin infusion started. And patient will be transferred for likely thrombectomy. Unclear causative etiology of this extensive clot. Quality:[facility] Health Related Social Needs: No Data to Display Critical Care Time Critical Care Time Critical Care Time: Yes Total Critical Care Time: 33 Attestation: CRITICAL CARE Upon my evaluation, this patient had a high probability of imminent or life- threatening deterioration due to extensive DVT which required my direct attention, intervention, and personal management. I have personally provided 33 minutes of critical care time exclusive of time spent on separately billable procedures. Time includes review of laboratory data, radiology results, discussion with consultants, and monitoring for potential decompensation. Interventions were performed as documented above Discharge Plan Disposition Patient Disposition: Transfer-Acute Inpatient Care Specific Acute Inpt Facility: [facility] Condition: Stable Discharge Details Clinical Impression: Left upper extremity deep vein thrombosis, Subclavian vein occlusion Primary Care Provider: Brandon Rivera ED Provider: Shashank Ni Home Meds and New Rx's Prescriptions: No Action No Known Home Meds
== END 2024-03-25 23:27 | disposition short-term general hospital (02) ==
PROVIDERS: Emergency Provider Physician Assistant; PCP Family Medicine
DX: I82.B12 Acute embolism and thrombosis of left subclavian vein (principal)
CPT/HCPCS: 00123; 36415; 71275; 73206; 80053; 85652; 96374; 99285; 83605; 85025; 85610; 85730; 86140; J1644; J2270; J3490; Q9967